=== PATIENT | female | born 1980 | race Caucasian/White ===

== ENCOUNTER 2016-12-01 18:05 | Emergency (ER) | payer OTHER ==
[2016-12-01 18:09] VITALS: BP 124/70; PULSE 87; RESP 16; TEMP 98.7
[2016-12-01] MEDS ORDERED: KETOROLAC 60 MG/2 ML VIAL IM STA (18:50)
--- NOTE | 2016-12-01 18:50 | ED ---
Neck Injury/Pain HPI - General Chief Complaint: Neck Pain/Injury Stated Complaint: neck pain Time Seen by Provider: 12/01/16 18:14 Mode of arrival: ambulatory Limitations: no limitations - History of Present Illness Initial Comments: 36-year-old female patient presents to emergency department today for complaints of neck pain. Patient states that she developed a migraine headache with neck pain 4-5 days ago. She states this was shortly after being at the carnival in riding the [employer] ride. Patient states that yesterday the pain in her head switched from the left side over to the right side and started radiating down into her neck. Patient states this morning she did go to the chiropractor, she had a massage and a neck adjustment. Patient states after the adjustment her headache did resolve, but she continued to have neck pain. Patient did have some nausea with her headache, but states this is typical with her migraine symptoms. Patient states she has been taking Flexeril, Tylenol No. 3, and Motrin for pain as well as applying heat and ice to the area without relief. Patient states the pain worsens with movement. Patient denies any fever, chills, current nausea or vomiting, shortness of breath, chest pain, back pain, dizziness, weakness, abdominal pain, urinary symptoms, or difficulties with bowel movements. She denies a loss of bowel or bladder control. Patient denies any radiation of the pain down either arm. Patient denies any numbness or tingling in her arms. - Related Data Home Medications Medication Instructions Recorded Confirmed Cetirizine HCl [Zyrtec] 10 mg PO BID 12/22/14 12/22/14 Levothyroxine Sodium [Tirosint] 50 mcg PO DAILY 12/22/14 12/22/14 Previous Rx's Medication Instructions Recorded Hydrocodone/Acetaminophen [Lefors 1 tab PO Q6HR PRN #20 tab 12/01/16 5-325] Orphenadrine [Norflex] 100 mg PO Q12H #20 tablet.er 12/01/16 Allergies Allergy/AdvReac Type Severity Reaction Status Date / Time Latex, Natural Rubber Allergy Unknown Verified 12/01/16 18:09 Review of Systems ROS Statement: Those systems with pertinent positive or pertinent negative responses have been documented in the HPI. ROS Other: All systems not noted in ROS Statement are negative. Past Medical History Past Medical History: Thyroid Disorder Additional Past Medical History / Comment(s): DERMAGRAPHISM History of Any Multi-Drug Resistant Organisms: None Reported Past Surgical History: Hysterectomy Past Psychological History: No Psychological Hx Reported Smoking Status: Never smoker Past Alcohol Use History: None Reported Past Drug Use History: None Reported General Exam Limitations: no limitations General appearance: alert, in no apparent distress Head exam: Present: atraumatic, normocephalic, normal inspection Eye exam: Present: normal appearance, PERRL, EOMI. Absent: scleral icterus, conjunctival injection, periorbital swelling ENT exam: Present: normal exam, normal oropharynx, mucous membranes moist Neck exam: Present: normal inspection, full ROM (Pain with lateral movement of the head, forward flexion, and extension of the neck.). Absent: tenderness, meningismus, lymphadenopathy Respiratory exam: Present: normal lung sounds bilaterally. Absent: respiratory distress, wheezes, rales, rhonchi, stridor Cardiovascular Exam: Present: regular rate, normal rhythm, normal heart sounds. Absent: systolic murmur, diastolic murmur, rubs, gallop, clicks GI/Abdominal exam: Present: soft, normal bowel sounds. Absent: distended, tenderness, guarding, rebound, rigid Back exam: Present: normal inspection Neurological exam: Present: alert, oriented X3, CN II-XII intact Psychiatric exam: Present: normal affect, normal mood Skin exam: Present: warm, dry, intact, normal color. Absent: rash Course Vital Signs 12/01/16 18:07 Temperature 98.7 F Pulse Rate 87 Respiratory 16 Rate Blood Pressure 124/70 O2 Sat by Pulse 100 Oximetry Medical Decision Making - Medical Decision Making 36 year-old female patient presented to emergency room in stable evaluation of neck pain. Patient did have some tenderness to the right lateral neck, was able to perform full range of motion but with some pain, patient's symptoms consistent with muscular injury. Patient was concerned did request x-ray. C- spine x-ray revealed no osseous abnormalities. Patient will be given a prescription for Norflex and Lefors for pain control. Patient injected. Her primary care physician in one to 2 days for recheck. Patient is asked to return for any new, worsening, or concerning symptoms. Disposition Clinical Impression: Neck pain, Muscle strain Disposition: HOME SELF-CARE Condition: Good Instructions: Cervical Strain (ED) Additional Instructions: Continue applying ice and heat. Utilize medications for pain control. Follow up with primary care doctor in 1-2 days for recheck. Return for any new, worsening, or concerning symptoms. Prescriptions: Hydrocodone/Acetaminophen [Lefors 5-325] 1 tab PO Q6HR PRN #20 tab PRN Reason: Pain Orphenadrine [Norflex] 100 mg PO Q12H #20 tablet.er Referrals: Eddi Michelle MD [Primary Care Provider] - 1-2 days Time of Disposition: 19:04
--- NOTE | 2016-12-01 18:58 | XR ---
EXAMINATION TYPE: XR cervical spine comp DATE OF EXAM: 12/01/2016 COMPARISON: NONE HISTORY: Neck pain TECHNIQUE: 6 views FINDINGS: Cervical vertebra have normal alignment. Posterior elements are intact. There are no cervic al ribs. Atlantoaxial facet joint is normal. Neural foramina are widely patent. IMPRESSION: Normal cervical spine exam.
== END 2016-12-01 19:08 | disposition home or self-care (01) ==
LOC: EC 18:05
DX: S16.1XXA Strain of muscle, fascia and tendon at neck level, initial encounter (principal); E07.9 Disorder of thyroid, unspecified; Z79.899 Other long term (current) drug therapy; Z91.040 Latex allergy status; X58.XXXA Exposure to other specified factors, initial encounter
CPT/HCPCS: 72050; 99283; 96372; J1885

== ENCOUNTER → 2017-12-15 | Outpatient (CLI) | payer OTHER ==
--- NOTE | 2017-12-16 07:27 | MM ---
Reason for exam: screening (asymptomatic). Baseline mammogram. History: Family history of breast cancer in paternal aunt at age 28. Taking progesterone beginning at age 37. Physical Findings: Nurse did not find any significant physical abnormalities on exam. [facility] Mammo w CAD MARKY Bilateral CC and MLO view(s) were taken. No prior studies available for comparison. The breast tissue is heterogeneously dense. This may lower the sensitivity of mammography. No discrete abnormality. These results were verbally communicated with the patient and result sheet given to the patient on 12/15/17. ASSESSMENT: Negative, BI-RAD 1 RECOMMENDATION: Routine screening mammogram of both breasts at age 39. Manage on a clinical basis.
== END | disposition home or self-care (01) ==
LOC: RADMAMWWP 14:21
PROVIDERS: ATTEND Family Medicine
DX: N64.52 Nipple discharge (principal)
CPT/HCPCS: 77066

== ENCOUNTER 2018-04-05 08:52 | Inpatient (IN) | payer OTHER ==
[2018-04-05] MEDS ORDERED: ONDANSETRON 4 MG/2 ML VIAL IVP STA (09:54)
[2018-04-05] MEDS ORDERED: KETOROLAC 30 MG/ML 1 ML VIAL IVP STA (09:54)
--- NOTE | 2018-04-05 09:54 | ED ---
Abdominal Pain HPI - General Chief Complaint: Abdominal Pain Stated Complaint: abdominal pain/vomiting Time Seen by Provider: 04/05/18 09:15 Source: patient, RN notes reviewed Mode of arrival: wheelchair Limitations: no limitations - History of Present Illness Initial Comments: This is a 29-year-old female history of irritable bowel syndrome who presents with complaints of nausea vomiting and dizziness that started yesterday along with left upper quadrant abdominal pain. Pain is 7-10/10 severity no diarrhea reported no constipation. She is had some chronic issues with abdominal discomfort she is here doctor for this and has lab scheduled. She has ultrasound scheduled the future also. He also seems to happen once nausea vomiting and dizziness she also feels chilled. She has had a vaginal hysterectomy no other abdominal surgeries. No cough or phlegm production no dysuria no hematuria though she states she felt like she may have been coming down with a UTI. She also was told to stop taking her medications about a week ago for upcoming tests MD Complaint: abdominal pain - Related Data Home Medications Medication Instructions Recorded Confirmed No Known Home Medications 04/05/18 04/05/18 Allergies Allergy/AdvReac Type Severity Reaction Status Date / Time Latex, Natural Rubber Allergy Unknown Verified 04/05/18 09:09 Review of Systems ROS Statement: Those systems with pertinent positive or pertinent negative responses have been documented in the HPI. ROS Other: All systems not noted in ROS Statement are negative. Past Medical History Past Medical History: Thyroid Disorder Additional Past Medical History / Comment(s): DERMAGRAPHISM ibs History of Any Multi-Drug Resistant Organisms: None Reported Past Surgical History: Hysterectomy Past Psychological History: No Psychological Hx Reported Smoking Status: Never smoker Past Alcohol Use History: None Reported Past Drug Use History: None Reported General Exam - General Exam Comments Initial Comments: This is a well-developed well-nourished awake alert oriented history female Limitations: no limitations General appearance: alert, anxious Head exam: Present: atraumatic, normocephalic, normal inspection Eye exam: Present: normal appearance, PERRL, EOMI. Absent: scleral icterus, conjunctival injection, periorbital swelling ENT exam: Present: mucous membranes dry Neck exam: Present: normal inspection. Absent: tenderness, meningismus, lymphadenopathy Respiratory exam: Present: normal lung sounds bilaterally. Absent: respiratory distress, wheezes, rales, rhonchi, stridor Cardiovascular Exam: Present: regular rate, normal rhythm, normal heart sounds. Absent: systolic murmur, diastolic murmur, rubs, gallop, clicks GI/Abdominal exam: Present: soft, tenderness (Epigastric left upper quadrant tenderness palpation no guarding rebound masses or bruits), normal bowel sounds. Absent: distended, guarding, rebound, rigid, hernia Rectal exam: Present: deferred Extremities exam: Present: normal inspection, full ROM, normal capillary refill. Absent: tenderness, pedal edema, joint swelling, calf tenderness Back exam: Present: normal inspection Neurological exam: Present: alert, oriented X3, CN II-XII intact Psychiatric exam: Present: normal affect, normal mood Skin exam: Present: warm, dry, intact, normal color. Absent: rash Course Vital Signs 04/05/18 04/05/18 08:55 13:14 Temperature 98.6 F Pulse Rate 66 74 Respiratory 20 16 Rate Blood Pressure 117/86 107/61 O2 Sat by Pulse 100 99 Oximetry - Reevaluation(s) Reevaluation #1: 04/05/18 13:42 Patient does still somewhat improved with respect to her bowel pain however she does have dizziness is not improved at all. Patient will be admitted for evaluation of intractable vertigo. Medical Decision Making - Medical Decision Making Patient persisted having profound dizziness with any type of movement she will be admitted for evaluation by neurology. Original intent was to discharge the patient but the vertigo is intractable this time. - Lab Data Result diagrams: 04/05/18 09:47 04/05/18 09:47 Lab Results 04/05/18 04/05/18 04/05/18 Range/Units 09:47 09:47 09:47 WBC 7.7 (3.8-10.6) k/uL RBC 4.94 (3.80-5.40) m/uL Hgb 14.5 (11.4-16.0) gm/dL Hct 42.3 (34.0-46.0) % MCV 85.6 (80.0-100.0) fL MCH 29.4 (25.0-35.0) pg MCHC 34.3 (31.0-37.0) g/dL RDW 12.7 (11.5-15.5) % Plt Count 257 (150-450) k/uL Neutrophils % 71 % Lymphocytes % 19 % Monocytes % 6 % Eosinophils % 2 % Basophils % 1 % Neutrophils # 5.4 (1.3-7.7) k/uL Lymphocytes # 1.5 (1.0-4.8) k/uL Monocytes # 0.4 (0-1.0) k/uL Eosinophils # 0.2 (0-0.7) k/uL Basophils # 0.1 (0-0.2) k/uL Sodium 142 (137-145) mmol/L Potassium 4.4 (3.5-5.1) mmol/L Chloride 107 (98-107) mmol/L Carbon Dioxide 27 (22-30) mmol/L Anion Gap 8 mmol/L BUN 11 (7-17) mg/dL Creatinine 0.62 (0.52-1.04) mg/dL Est GFR (CKD-EPI)AfAm >90 (>60 ml/min/1.73 sqM) Est GFR (CKD-EPI)NonAf >90 (>60 ml/min/1.73 sqM) Glucose 87 (74-99) mg/dL Calcium 9.6 (8.4-10.2) mg/dL Total Bilirubin 1.0 (0.2-1.3) mg/dL AST 19 (14-36) U/L ALT 21 (9-52) U/L Alkaline Phosphatase 40 (38-126) U/L Total Creatine Kinase 36 (30-135) U/L CK-MB (CK-2) <0.2 (0.0-2.4) ng/mL CK-MB (CK-2) Rel Index Troponin I <0.012 (0.000-0.034) ng/mL Total Protein 7.4 (6.3-8.2) g/dL Albumin 4.3 (3.5-5.0) g/dL Amylase 88 (30-110) U/L Lipase 42 (23-300) U/L TSH 2.600 (0.465-4.680) mIU/L Urine Color Urine Appearance (Clear) Urine pH (5.0-8.0) Ur Specific [place] (1.001-1.035) Urine Protein (Negative) Urine Glucose (UA) (Negative) Urine Ketones (Negative) Urine Blood (Negative) Urine Nitrite (Negative) Urine Bilirubin (Negative) Urine Urobilinogen (<2.0) mg/dL Ur Leukocyte Esterase (Negative) Urine RBC (0-5) /hpf Urine WBC (0-5) /hpf Ur Squamous Epith Cells (0-4) /hpf Urine Bacteria (None) /hpf Hyaline Casts (0-2) /lpf Urine Mucus (None) /hpf Urine HCG, Qual (Not Detectd) 04/05/18 04/05/18 Range/Units 12:21 12:21 WBC (3.8-10.6) k/uL RBC (3.80-5.40) m/uL Hgb (11.4-16.0) gm/dL Hct (34.0-46.0) % MCV (80.0-100.0) fL MCH (25.0-35.0) pg MCHC (31.0-37.0) g/dL RDW (11.5-15.5) % Plt Count (150-450) k/uL Neutrophils % % Lymphocytes % % Monocytes % % Eosinophils % % Basophils % % Neutrophils # (1.3-7.7) k/uL Lymphocytes # (1.0-4.8) k/uL Monocytes # (0-1.0) k/uL Eosinophils # (0-0.7) k/uL Basophils # (0-0.2) k/uL Sodium (137-145) mmol/L Potassium (3.5-5.1) mmol/L Chloride (98-107) mmol/L Carbon Dioxide (22-30) mmol/L Anion Gap mmol/L BUN (7-17) mg/dL Creatinine (0.52-1.04) mg/dL Est GFR (CKD-EPI)AfAm (>60 ml/min/1.73 sqM) Est GFR (CKD-EPI)NonAf (>60 ml/min/1.73 sqM) Glucose (74-99) mg/dL Calcium (8.4-10.2) mg/dL Total Bilirubin (0.2-1.3) mg/dL AST (14-36) U/L ALT (9-52) U/L Alkaline Phosphatase (38-126) U/L Total Creatine Kinase (30-135) U/L CK-MB (CK-2) (0.0-2.4) ng/mL CK-MB (CK-2) Rel Index Troponin I (0.000-0.034) ng/mL Total Protein (6.3-8.2) g/dL Albumin (3.5-5.0) g/dL Amylase (30-110) U/L Lipase (23-300) U/L TSH (0.465-4.680) mIU/L Urine Color Yellow Urine Appearance Cloudy H (Clear) Urine pH 7.0 (5.0-8.0) Ur Specific [place] 1.018 (1.001-1.035) Urine Protein Trace H (Negative) Urine Glucose (UA) Negative (Negative) Urine Ketones 3+ H (Negative) Urine Blood Negative (Negative) Urine Nitrite Negative (Negative) Urine Bilirubin Negative (Negative) Urine Urobilinogen <2.0 (<2.0) mg/dL Ur Leukocyte Esterase Negative (Negative) Urine RBC 4 (0-5) /hpf Urine WBC 2 (0-5) /hpf Ur Squamous Epith Cells 3 (0-4) /hpf Urine Bacteria Rare H (None) /hpf Hyaline Casts 1 (0-2) /lpf Urine Mucus Many H (None) /hpf Urine HCG, Qual Not Detected (Not Detectd) - Radiology Data Radiology results: report reviewed (Review the imaging shows no acute findings. There is evidence a left renal cyst cyst), image reviewed Disposition Clinical Impression: Vertigo, Abdominal pain Disposition: ADMITTED IP TO THIS [facility] Condition: Stable Referrals: Anika Lemos MD [Primary Care Provider] - 1-2 days
[2018-04-05 09:59] LABS: Basophils # (A) 0.1 k/uL (0-0.2); Basophils % (A) 1 %; Eosinophils # (A) 0.2 k/uL (0-0.7); Eosinophils % (A) 2 %; HCT 42.3 % (34.0-46.0); HGB 14.5 gm/dL (11.4-16.0); Lymphocytes # (A) 1.5 k/uL (1.0-4.8); Lymphocytes % (A) 19 %; MCH 29.4 pg (25.0-35.0); MCHC 34.3 g/dL (31.0-37.0); MCV 85.6 fL (80.0-100.0); Mean Platelet Volume 7.3; Monocytes # (A) 0.4 k/uL (0-1.0); Monocytes % (A) 6 %; Neutrophils # (A) 5.4 k/uL (1.3-7.7); Neutrophils % (A) 71 %; Platelet Count 257 k/uL (150-450); RBC 4.94 m/uL (3.80-5.40); RDW 12.7 % (11.5-15.5); WBC 7.7 k/uL (3.8-10.6)
[2018-04-05 10:14] LABS: ALT 21 U/L (9-52); AST 19 U/L (14-36); Albumin 4.3 g/dL (3.5-5.0); Alkaline Phosphatase 40 U/L (38-126); Amylase 88 U/L (30-110); Anion Gap 8 mmol/L; Blood Urea Nitrogen 11 mg/dL (7-17); Calcium 9.6 mg/dL (8.4-10.2); Carbon Dioxide 27 mmol/L (22-30); Chloride 107 mmol/L (98-107); Glucose 87 mg/dL (74-99); Lipase 42 U/L (23-300); Potassium 4.4 mmol/L (3.5-5.1); Sodium 142 mmol/L (137-145); Total Protein 7.4 g/dL (6.3-8.2)
--- NOTE | 2018-04-05 10:15 | XR ---
EXAMINATION TYPE: XR KUB DATE OF EXAM: 04/05/2018 COMPARISON: NONE HISTORY: Pain TECHNIQUE: Single supine KUB image of the abdomen is obtained FINDINGS: Small bowel demonstrates no evidence for dilatation or air fluid levels. Gas and fecal material is seen in non-distended colon. No convincing evidence for pneumoperitoneum. No unusual calcifications. The lung bases are clear. The osseous structures are intact. IMPRESSION: 1. Overall nonobstructive bowel gas pattern.
[2018-04-05 10:23] LABS: Creatine Kinase 36 U/L (30-135)
[2018-04-05] MEDS ORDERED: MECLIZINE 12.5 MG TAB PO STA ×2 (10:33→12:34)
[2018-04-05 10:35] LABS: Creatine Kinase MB <0.2 ng/mL (0.0-2.4); Troponin I <0.012 ng/mL (0.000-0.034)
[2018-04-05] MEDS ORDERED: SODIUM CHLORIDE 0.9% 500 ML 500 ML IV STA (12:34)
--- NOTE | 2018-04-05 12:59 | CT ---
EXAMINATION TYPE: CT abdomen pelvis wo con DATE OF EXAM: 04/05/2018 COMPARISON: None HISTORY: Abdominal pain, vomiting and dizziness CT DLP: 350 mGycm Examination of the solid and hollow viscera is limited given the lack of contrast. FINDINGS: LUNG BASES: No evidence for nodule. No evidence for infiltrate. LIVER/GB: The gallbladder is unremarkable. No space-occupying hepatic lesion. PANCREAS: No pancreatic mass identified. No inflammatory process seen. SPLEEN: No evidence for splenomegaly. No intrasplenic lesions seen. ADRENALS: No adrenal nodules identified. No evidence for thickening. KIDNEYS: Bilateral renal cystic changes noted. Large cyst upper pole left kidney measures 3.2 cm in g reatest dimension. No nephrolithiasis. No hydronephrosis. BOWEL: Appendix has a normal appearance. No evidence of bowel obstruction. No inflammatory process. Lymph nodes: No evidence for adenopathy greater than 1 cm. Abdominal aorta: Atheromatous changes seen. No evidence for aneurysm. Genital organs: No significant abnormality. Other: No significant abnormality. IMPRESSION: 1. No acute intra-abdominal process appreciated. 2. Large left renal cyst as well as smaller bilateral renal cysts noted.
[2018-04-05 13:03] LABS: Appearance,Urine Cloudy (Clear); Bacteria,Urine Rare /hpf; Bilirubin,Urine Negative (Negative); Blood,Urine Negative (Negative); Color,Urine Yellow; Glucose,Urine (UA) Negative (Negative); Hyaline Casts,Urine 1 /lpf (0-2); Ketones,Urine 3+ (Negative); Leukocyte Esterase,Urine Negative (Negative); Mucus,Urine Many /hpf; Nitrite,Urine Negative (Negative); Protein,Urine Trace (Negative); RBC,Urine 4 /hpf (0-5); Specific Gravity,Urine 1.018 (1.001-1.035); Squamous Epithelial Cell,Urine 3 /hpf (0-4); Urobilinogen,Urine <2.0 mg/dL (<2.0); WBC,Urine 2 /hpf (0-5)
[2018-04-05] MEDS ORDERED: NALOXONE 0.4 MG/ML 1 ML VIAL IV PRN (13:47)
[2018-04-05] MEDS ORDERED: ACETAMINOPHEN TAB 325 MG TAB PO PRN (13:47)
[2018-04-05] MEDS ORDERED: methylPREDNISolone SOD SUCCI 125 MG/2 ML VIAL IV STA (13:55)
[2018-04-05] MEDS ORDERED: DIAZEPAM 5 MG TAB PO STA (13:55)
[2018-04-05] MEDS: ONDANSETRON 4 MG/2 ML VIAL IVP PRN (18:02)
[2018-04-05] MEDS ORDERED: ALPRAZolam 0.25 MG TAB PO PRN (19:37)
[2018-04-05] MEDS ORDERED: TEMAZEPAM 15 MG CAP PO PRN (19:37)
[2018-04-05] MEDS ORDERED: HYDROcodone/APAP 5-325MG 1 EACH TAB PO PRN (19:37)
--- NOTE | 2018-04-05 20:47 | CT ---
EXAMINATION TYPE: CT brain wo con DATE OF EXAM: 04/05/2018 COMPARISON: 06/17/2013 HISTORY: Dizziness. CT DLP: 785.7 mGycm. Automated Exposure Control for Dose Reduction was Utilized. TECHNIQUE: CT scan of the head is performed without contrast. FINDINGS: Ventricles of normal size. There is no mass effect nor midline shift. There is no sign of i ntracranial hemorrhage. Calvarium is intact. IMPRESSION: Negative CT scan of the brain. No change.
--- NOTE | 2018-04-05 20:56 | HP ---
HISTORY AND PHYSICAL CHIEF COMPLAINTS: Abdominal pain as well as dizziness. HISTORY OF PRESENT ILLNESS: This 37-year-old woman with a past medical history of seizure disorder, history of hypothyroidism, history of dermatographism, history of hysterectomy, uterine ablation, being followed by Dr. Lemos in the outpatient setting, was complaining of abdominal pain. The patient also had dizziness today. The pain was mostly situated in the left upper quadrant and was radiating to the back, according to her. The patient also had irritable bowel syndrome previously and the patient also had episodes and diarrhea and nausea. The patient also felt dizzy, and dizziness increased with change in the position of the neck, and the patient came to [facility] and was admitted for further evaluation and treatment. CT scan of the abdomen and pelvis did not show any abnormality. Neurology evaluation is in progress. There is no history of any fever, rigor or chills. No history of headache, loss of consciousness, seizures. PAST MEDICAL HISTORY: 1. Seizure disorder. 2. Skin disorder. 3. Hypothyroidism. 4. Dermatographism. 5. Hysterectomy. 6. Uterine ablation. MEDICATIONS PRIOR TO ADMISSION: None. ALLERGIES: LATEX. FAMILY HISTORY: Diabetes mellitus, hypertension, hyperlipidemia, hypomagnesemia in the family. SOCIAL HISTORY: No history of smoking. No history of alcohol intake. Patient works in a chiropractic office. REVIEW OF SYSTEMS: ENT: As mentioned earlier. CARDIOVASCULAR SYSTEM: No angina, palpitations. RESPIRATORY SYSTEM: As mentioned earlier. GI: As mentioned earlier. : No dysuria or retention. NERVOUS SYSTEM: No numbness, weakness. ALLERGY/IMMUNOLOGY: No asthma, hayfever. MUSCULOSKELETAL: As mentioned earlier. HEMATOLOGY/ONCOLOGY: No history of anemia. ENDOCRINE: No history of diabetes, hypothyroidism. CONSTITUTIONAL: As mentioned earlier. DERMATOLOGY: Negative. RHEUMATOLOGY: Negative. PSYCHIATRY: As mentioned earlier. PHYSICAL EXAMINATION: Patient is alert, oriented x3. Pulse 67, blood pressure 122/66, respiration 16, temperature 99 degrees, pulse ox 100% on room air. HEENT: Conjunctivae normal. Oral mucosa moist. NECK: No jugular venous distention. No carotid bruit. No lymph node enlargement. CARDIOVASCULAR SYSTEM: S1, S2 muffled. RESPIRATORY SYSTEM: Breath sounds diminished at the bases. No rhonchi. No crackles. ABDOMEN: Soft. Mild diffuse discomfort to palpation. No guarding. No rigidity. No mass palpable. No hepatosplenomegaly. No ascites. LEGS: No edema. No swelling. NERVOUS SYSTEM: Higher functions as mentioned earlier. Moves all 4 limbs. No focal motor or sensory deficit. No nystagmus. No diplopia. SKIN: No ulcer, rash or bleeding. JOINTS: No active deforming arthropathy. LABS: CBC, BMP within normal limits. TSH is normal. FSH is normal. UA noted. ASSESSMENT: 1. Abdominal pain and nausea; possible irritable bowel syndrome, acute exacerbation. 2. Possible acute gastritis. 3. Vertigo; possible benign pressure vertigo. 4. Large left renal cyst on the CT scan. 5. History of irritable bowel syndrome. 6. History of seizure disorder. 7. History of hypothyroidism. 8. History of dermatographism. 9. History of hysterectomy. RECOMMENDATIONS AND DISCUSSION: In this 37-year-old woman who presented with multiple complex medical issues, we will monitor the patient closely, continue the current management, continue with symptomatic treatment. Otherwise at this time I would recommend symptomatic treatment. I would also recommend a CT scan of the brain to complete the workup. Neurology evaluation. Guarded prognosis because of multiple complex medical issues. Further recommendations to follow. MMODL / IJN: [id number] /
[2018-04-05] MEDS: HEPARIN SODIUM,PORCINE 5,000 UNIT/ML 1 ML VIAL SQ SCH (21:13)
[2018-04-05] MEDS: MECLIZINE 25 MG TAB PO SCH (21:13)
[2018-04-05] MEDS: SODIUM CHLORIDE 0.9% 1,000 ML IV SCH (22:10)
--- NOTE | 2018-04-05 22:42 | P.CNNES ---
History of Present Illness Consult date: 04/05/18 History of Present Illness: Patient 37-year-old right-handed white female who states that Wednesday night when she got up to use the restroom she developed sudden onset dizziness and vertigo. She was running into dawson. Discontinued all day and she did go to work. She works at a chiropractor's office and she had an adjustment thinking it might help with this did not help and it did not change her situation. The dizziness continued all day Wednesday. Today when she was in the shower she felt very dizzy and thought she might fall. She held to the handrails and called her . She was brought to the hospital with symptoms of vertigo. She also came because of chronic abdominal pain. The patient reports that she has had abdominal pain of left upper quadrant for over a year and she was diagnosed with IBS. The patient states that this vertigo which began a few days ago is associated with nausea vomiting and she has some left ear tinnitus for the past 1 month next Patient also reports chronic migraines. Her migraines occur 2-3 times a week and also on weekends. She was on Topamax in the past but this caused her some side effects of numbness in the feet and so she stopped. Migraines consist of preceding visual loss in the left eye followed by a headache. She states sometimes of visual blurring and loss will last throughout her headache. She normally gets the adjustment done for her headache and prefers not to take any medications. She has tried tryptophans in the past which didn't help. It aches became complicated in 2016. Prior to 2016 her migraines were not associated with visual loss or facial numbness. Now her migraines Are associated with left eye visual loss and left facial numbness since 2016. Review of Systems Constitutional: Denies chills, Denies fever Ears, nose, mouth and throat: Denies headache, Denies sore throat Cardiovascular: Denies chest pain, Denies shortness of breath Respiratory: Denies cough Gastrointestinal: Denies abdominal pain, Denies diarrhea, Denies nausea, Denies vomiting Musculoskeletal: Denies myalgias Neurological: Denies numbness, Denies weakness Psychiatric: Denies anxiety, Denies depression Past Medical History Past Medical History: Seizure Disorder, Skin Disorder, Thyroid Disorder Additional Past Medical History / Comment(s): DERMAGRAPHISM ibs, chronic abdominal pain-to have US on 04/13/18, past hypothyroid but no longer issue, one seizure as an and was comatose for 5 days, migraines, hypoglycemia. History of Any Multi-Drug Resistant Organisms: None Reported Past Surgical History: Hysterectomy, Uterine Ablation Additional Past Surgical History / Comment(s): D&C x2m hysteroscopy with uterine ablation Past Anesthesia/Blood Transfusion Reactions: No Reported Reaction Past Psychological History: No Psychological Hx Reported Additional Psychological History / Comment(s): Pt resides with her spouse and 2 out of their 3 children. Oldest child no longer lives at home. Pt works for [employer] Smoking Status: Never smoker Past Alcohol Use History: None Reported Past Drug Use History: None Reported - Past Family History Mother Family Medical History: Diabetes Mellitus, Hyperlipidemia, Hypertension Additional Family Medical History / Comment(s): Hypomagnesemia. Father Family Medical History: Chest Pain / Angina, Coronary Artery Disease (CAD), Hypertension, Myocardial Infarction (IA) Additional Family Medical History / Comment(s): Father had his first IA in his mid 50s. Medications and Allergies Home Medications Medication Instructions Recorded Confirmed Type No Known Home Medications 04/05/18 04/05/18 History Allergies Allergy/AdvReac Type Severity Reaction Status Date / Time Latex, Natural Rubber Allergy Unknown Verified 04/05/18 09:09 Physical Examination - Vital Signs Vital Signs: Vital Signs Temp Pulse Pulse Pulse Pulse Pulse Resp 04/05/18 21:43 87 89 76 04/05/18 21:05 98.4 F 78 16 04/05/18 15:37 98.2 F 75 16 04/05/18 14:16 99 F 67 16 04/05/18 13:14 74 16 04/05/18 08:55 98.6 F 66 20 BP BP BP BP BP Pulse Ox 04/05/18 21:43 111/61 109/65 102/58 04/05/18 21:05 99/58 96 04/05/18 15:37 100/58 97 04/05/18 14:16 122/66 100 04/05/18 13:14 107/61 99 04/05/18 08:55 117/86 100 Intake and Output 04/05/18 04/05/18 04/05/18 06:59 14:59 22:59 Other: Voiding Method Toilet Weight 58.06 kg - Constitutional General appearance: thin - EENT EENT: PERRL, hearing intact - Respiratory Respiratory: lungs clear - Cardiovascular Cardiovascular: regular rate, normal S1, normal S2 - Neurologic Neurologic examination: Cranial nerve examination: Nerves II through XII grossly intact Motor examination: 5 out of 5 throughout Sensory examination: Intact to light touch X Coordination: Finger to nose [id number] intact Deep tendon reflexes: 1+ and symmetric next Gait: Not tested Results - Laboratory Findings CBC and BMP: 04/05/18 09:47 04/05/18 09:47 Abnormal Lab Findings: Abnormal Labs 04/05/18 12:21 Urine Appearance Cloudy H Urine Protein Trace H Urine Ketones 3+ H Urine Bacteria Rare H Urine Mucus Many H Assessment and Plan (1) Vertigo Current Visit: Yes Status: Acute SNOMED Code(s): 818211180 (2) Abdominal pain Current Visit: Yes Status: Acute SNOMED Code(s): 58779207 (3) History of atypical migraine Current Visit: Yes Status: Acute SNOMED Code(s): 079737511 Plan: The patient is a 37-year-old woman who presents with vertigo. She also presents with chronic abdominal pain and history of migraines. Had a CT of the brain which was negative. Recommend MRI of the IAC and MRA brain Her vertigo is likely peripheral vestibular disturbance. Her migraines are chronic and recommend prophylactic treatment with extended release Topamax 25 mg a day. The patient will be given meclizine 25 mg 3 times a day as needed
[2018-04-05] MEDS: KETOROLAC 30 MG/ML 1 ML VIAL IVP PRN (23:00)
[2018-04-06] MEDS: DIAZEPAM 5 MG TAB PO PRN ×3 (01:21→21:01)
[2018-04-06] MEDS: ONDANSETRON 4 MG/2 ML VIAL IVP PRN ×2 (01:22→10:01)
[2018-04-06] MEDS: PANTOPRAZOLE 40 MG TABLET PO SCH (07:25)
[2018-04-06] MEDS: TOPIRAMATE 25 MG TAB PO SCH (07:25)
[2018-04-06] MEDS: HEPARIN SODIUM,PORCINE 5,000 UNIT/ML 1 ML VIAL SQ SCH ×2 (07:25→21:01)
[2018-04-06] MEDS: KETOROLAC 30 MG/ML 1 ML VIAL IVP PRN (07:26)
[2018-04-06] MEDS: MECLIZINE 25 MG TAB PO SCH ×3 (07:26→21:01)
[2018-04-06] MEDS: SODIUM CHLORIDE 0.9% 1,000 ML IV SCH ×2 (07:26→21:03)
[2018-04-06 10:23] VITALS: BMI 22.6
--- NOTE | 2018-04-06 15:46 | MR ---
EXAMINATION TYPE: MR brain and iac wo con DATE OF EXAM: 04/06/2018 COMPARISON: NONE HISTORY: 37-year-old female Vertigo/headache TECHNIQUE: Multiplanar, multisequence images of the brain and brainstem were acquired without IV con trast. Diffusion weighted imaging was performed. Additional coned-down sequences through the interna l auditory canals and posterior cranial fossa were obtained. FINDINGS: Diffusion weighted images demonstrate no evidence of an acute ischemic lesion in the brain. T2/FLAIR weighted sequences show no white matter signal abnormality. Midline structures demonstrate normal morphology. The craniocervical junction is normal. Brain volume is age appropriate. The ventricles are of normal caliber. There is no evidence of an acute intracranial hemorrhage, infarct, mass, mass-effect or an extra-axia l fluid collection. There is no cerebellopontine angle mass. The internal auditory canals are symmetric. Brainstem and skull base abnormalities are not seen. No evident abnormality of the labyrinths or inner ear structures by noncontrast study. Trace mucosal thickening within the right maxillary sinus. Patient's gaze appears divergent. 1 cm T1 and T2 dark nodule along the scalp of the right vertex most likely a sebaceous cyst. Correlat e with physical exam findings. IMPRESSION: 1. No intracranial abnormality seen. 2. Normal acoustic MRI. 3. Divergent gaze suggests underlying strabismus. Clinically correlate. 4. Trace mucosal thickening right maxillary sinus. 5. There is a 1 cm cystic nodule along the scalp of the right vertex likely representing a sebaceous cyst. Correlate with physical exam findings.
--- NOTE | 2018-04-06 15:49 | MR ---
EXAMINATION TYPE: MR angio head wo con DATE OF EXAM: 04/06/2018 COMPARISON: Correlation MRI same day HISTORY: 37-year-old female with Vertigo/headache TECHNIQUE: High-resolution 3-D time of flight images focusing on the [place] of [place] were performed without contrast. Rotational 3-D reconstructions generated on a dedicated independent workstation. FINDINGS: The A1 segment left anterior cerebral artery is slightly smaller in caliber as compared to the contra lateral side, likely normal congenital variation. Otherwise, the anterior and posterior circulations are patent without significant stenosis or arteria l occlusion. No aneurysmal change is seen. IMPRESSION: Normal MRA [place].
[2018-04-07] MEDS: SODIUM CHLORIDE 0.9% 1,000 ML IV SCH ×3 (06:02→23:41)
[2018-04-07] MEDS: DIAZEPAM 5 MG TAB PO PRN ×2 (08:01→16:03)
[2018-04-07] MEDS: HEPARIN SODIUM,PORCINE 5,000 UNIT/ML 1 ML VIAL SQ SCH ×2 (08:01→21:37)
[2018-04-07] MEDS: TOPIRAMATE 25 MG TAB PO SCH (08:01)
[2018-04-07] MEDS: ONDANSETRON 4 MG/2 ML VIAL IVP PRN ×3 (08:01→23:38)
[2018-04-07] MEDS: PANTOPRAZOLE 40 MG TABLET PO SCH (08:01)
[2018-04-07] MEDS: KETOROLAC 30 MG/ML 1 ML VIAL IVP PRN ×3 (08:02→22:40)
[2018-04-07] MEDS: MECLIZINE 25 MG TAB PO SCH ×3 (09:52→21:37)
--- NOTE | 2018-04-07 10:49 | P.PN ---
Subjective this is pleasant 37 yo female who presents with vertigo , she is been evaluated by neurologist who recommended MRI and MRA of the brain ,which came back negative to suggest pain symptoms and signs also she has migrain headacke, topamax was added for her . she has chronic abd pain that has been getting worse over several months, its and the left upper abdomen radiating over to the back. Sometimes feels sharp sometimes feels queasy and sometimes is nonspecific as per patient. About 5-6/10 in severity. Associated with some nausea and vomiting and patient get worse with food. However abdominal exam is completely benign with no tenderness. GI consult has been called. Patient also complained from dysuria. Urinalysis is been requested CONSTITUTIONAL: No fever, no malaise, no fatigue. HEENT: No recent visual problems or hearing problems. Denied any sore throat. CARDIOVASCULAR: No orthopnea, PND, no palpitations, no syncope. PULMONARY: No shortness of breath, no cough, no hemoptysis. GASTROINTESTINAL: . Normoactive bowel sounds. NEUROLOGICAL: No headaches, no weakness, no numbness. HEMATOLOGICAL: Denies any bleeding or petechiae. GENITOURINARY: Denies frequency, or urgency. MUSCULOSKELETAL/RHEUMATOLOGICAL: Denies any joint pain, swelling, or any muscle pain. ENDOCRINE: Denies any polyuria or polydipsia. Objective - Vital Signs Vital signs: Vital Signs Temp 98.5 F 04/07/18 05:00 Pulse 68 04/07/18 05:00 Resp 16 04/07/18 05:00 BP 105/64 04/07/18 05:00 Pulse Ox 98 04/07/18 05:00 Intake & Output 04/06/18 04/07/18 04/07/18 18:59 06:59 18:59 Intake Total 800 1400 Balance 800 1400 Weight 58.06 kg Intake: Intake, IV Titration 800 900 Amount Sodium Chloride 0.9% 1, 800 900 000 ml @ 100 mls/hr IV . Q10H [facility] Rx#:[id number] Oral 500 Other: Voiding Method Toilet Toilet Toilet # Voids 1 - Exam GENERAL: The patient is alert and oriented x3, not in any acute distress. Well developed, well nourished. HEENT: Pupils are round and equally reacting to light. EOMI. No scleral icterus. No conjunctival pallor. Normocephalic, atraumatic. No pharyngeal erythema. No thyromegaly. CARDIOVASCULAR: S1 and S2 present. No murmurs, rubs, or gallops. PULMONARY: Chest is clear to auscultation, no wheezing or crackles. ABDOMEN: Soft, nontender, nondistended, normoactive bowel sounds. No palpable organomegaly. MUSCULOSKELETAL: No joint swelling or deformity. EXTREMITIES: No cyanosis, clubbing, or pedal edema. NEUROLOGICAL: Gross neurological examination did not reveal any focal deficits. SKIN: No rashes. - Labs CBC & Chem 7: 04/05/18 09:47 04/05/18 09:47 Assessment and Plan Assessment: vertigo chronic migraine chronic abdominal pain Dysuria Plan: this is a pleasant 37 yo f who peresnts with s/s of vertigo. pt is been evaluated by neurologist . her MRI/MRA was non reveling for a cause for her symptoms. Call GI consult for her abdominal pain. continue with the same treatment , continue with symptomatic treatment , resume home medication , monitor lytes and vitals including glucose , c/w iv fluids, cardiology consult is appreciated. infectious disease consult is appreciated . c /w same antibioitc . GI and DVT prophylaxis , further recommendation based upon pt clinical course and progress DVT prophylaxis subcutaneous heparin GI prophylaxis Pepcid PT/OT: pending Prognosis is guarded
[2018-04-07 11:18] LABS: Appearance,Urine Clear (Clear); Bilirubin,Urine Negative (Negative); Blood,Urine Negative (Negative); Color,Urine Light Yellow; Glucose,Urine (UA) Negative (Negative); Ketones,Urine Negative (Negative); Leukocyte Esterase,Urine Negative (Negative); Nitrite,Urine Negative (Negative); Protein,Urine Negative (Negative); Specific Gravity,Urine 1.006 (1.001-1.035); Urobilinogen,Urine <2.0 mg/dL (<2.0)
--- NOTE | 2018-04-07 11:46 | P.CONS ---
History of Present Illness - Reason for Consult Consult date: 04/07/18 Abdominal pain Requesting physician: Yonis Lopez - Chief Complaint Vertigo chronic left-sided abdominal pain - History of Present Illness 37-year-old female with a history of IBS-D not on maintenance therapy, migraines , chronic abdominal pain, demographism, dense with vertigo and acute on chronic abdominal pain left upper quadrant localized without fever chills hematemesis hematochezia melena. Patient describes a change in caliber of her bowel movements more pencillike. Normally has a bowel movement daily to when she has an IV is. It could be several bowel movements daily. CT Reported normal appendix. No evidence of bowel obstruction or inflammatory process. Gallbladder pancreas unremarkable. No splenomegaly. She has a history of colonoscopy about 10 years ago her memory unremarkable. She has a family history of colon cancer uncle and grandmother. She has been evaluated by neurology head MRI brain MRI completed; no acute abnormality. Abdominal pain worsens with food. White count 7.7. Hemoglobin 14.5. LFTs amylase lipase within normal limits. Review of Systems Constitutional: Denies fever, chills, sweats, weight gain, or loss. HEENT: History of migraines, denies blurred vision or loss, earaches, drainage, tinnitus, oral mucosal lesions, dysphagia, or odynophagia. CARDIAC: Negative for chest pain, arrhythmias, or palpitation. RESPIRATORY: Negative for shortness of breath, hemoptysis, cough, or sputum production. GI: See HPI for pertinent findings. : Negative for hematuria, urgency, frequency, polyuria, or dysuria. GYNc: Denies possibility of . Negative vaginal discharge. MUSCULOSKELETAL: Negative for muscle aches, swelling, arthritis, and arthralgias. NEUROLOGIC: Negative for stroke or TIA. ENDOCRINE: Negative for thyroid problems. SKIN: Negative for rash or itching. PSYCHIATRIC: Negative history for depression and anxiety Past Medical History Past Medical History: Seizure Disorder, Skin Disorder, Thyroid Disorder Additional Past Medical History / Comment(s): DERMAGRAPHISM ibs, chronic abdominal pain-to have US on 04/13/18, past hypothyroid but no longer issue, one seizure as an and was comatose for 5 days, migraines, hypoglycemia. History of Any Multi-Drug Resistant Organisms: None Reported Past Surgical History: Hysterectomy, Uterine Ablation Additional Past Surgical History / Comment(s): D&C x2m hysteroscopy with uterine ablation Past Anesthesia/Blood Transfusion Reactions: No Reported Reaction Past Psychological History: No Psychological Hx Reported Additional Psychological History / Comment(s): Pt resides with her spouse and 2 out of their 3 children. Oldest child no longer lives at home. Pt works for [employer]. Smoking Status: Never smoker Past Alcohol Use History: None Reported Past Drug Use History: None Reported - Past Family History Mother Family Medical History: Diabetes Mellitus, Hyperlipidemia, Hypertension Additional Family Medical History / Comment(s): Hypomagnesemia. Father Family Medical History: Chest Pain / Angina, Coronary Artery Disease (CAD), Hypertension, Myocardial Infarction (SD) Additional Family Medical History / Comment(s): Father had his first SD in his mid 50s. Medications and Allergies Home Medications Medication Instructions Recorded Confirmed Type No Known Home Medications 04/05/18 04/05/18 History Allergies Allergy/AdvReac Type Severity Reaction Status Date / Time Latex, Natural Rubber Allergy Unknown Verified 04/05/18 09:09 Physical Exam Vitals: Vital Signs Temp Pulse Pulse Resp BP BP Pulse Ox 04/07/18 05:00 98.5 F 68 16 105/64 98 04/06/18 21:00 98.1 F 80 16 115/73 97 04/06/18 13:30 98.1 F 81 16 100/60 96 Intake and Output 04/06/18 04/07/18 04/07/18 22:59 06:59 14:59 Intake Total 1400 Balance 1400 Intake: Intake, IV Titration 900 Amount Sodium Chloride 0.9% 1, 900 000 ml @ 100 mls/hr IV . Q10H [facility] Rx#:[id number] Oral 500 Other: Voiding Method Toilet Toilet # Voids 1 1 General appearance: The patient is alert, oriented, in no acute distress. HET: Head is normocephalic and atraumatic. Pupils are equal and reactive. Oropharynx is clear without lesions. Neck: Supple without lymphadenopathy. Trachea midline. Heart: S1 S2. Regular rate and rhythm. Lungs: No crackles or wheezes are heard. Abdomen: Soft, mild tenderness left upper quadrant extending to the left retroperitoneal region, nondistended with bowel sounds. No peritoneal signs. No palpable organomegaly or masses. Extremities: Normal skin color and turgor. No cyanosis, rash, ulceration, clubbing, or edema. Radial and pedal pulses are 2/4 bilaterally. Neurological: No focal deficits. Strength and sensation are grossly intact. Results CBC & Chem 7: 04/05/18 09:47 04/05/18 09:47 CT scan - abdomen: report reviewed (Dr. Rodriguez) Assessment and Plan (1) Abdominal pain Narrative/Plan: 37-year-old female admitted with acute vertigo acute on chronic left upper quadrant abdominal pain with a history of IBS-D CT imaging unremarkable for any acute bowel pathology no evidence of spleen or pancreas abnormalities. Etiology of pain is unclear possible exacerbation of IBS. Current Visit: Yes Status: Acute Code(s): R10.9 - UNSPECIFIED ABDOMINAL PAIN SNOMED Code(s): 15284448 (2) History of IBS Current Visit: Yes Status: Acute Code(s): Z87.19 - PERSONAL HISTORY OF OTHER DISEASES OF THE DIGESTIVE SYSTEM SNOMED Code(s): 56846167776459 (3) Vertigo Current Visit: Yes Status: Acute Code(s): R42 - DIZZINESS AND GIDDINESS SNOMED Code(s): 193168100 Plan: 1. EGD/Colonoscopy. The station attendant has discussed the risks, benefits and alternative therapies for the above-mentioned procedure and for both sedation/analgesia as well as necessary blood product administration, if indicated, as they pertain to this patient. The patient has indicated understanding and acceptance of the risks and procedures discussed. Thank you for this kind referral and the opportunity to participate in the care of your patient. This consultation was discussed with Dr. Rodriguez. The impression and plan of care have been directed as dictated.
[2018-04-07] MEDS ORDERED: BISACODYL 5 MG TABLET.DR PO STA (13:01)
[2018-04-07] MEDS ORDERED: PEG 3350-NA SULF,BICARB,CL/KCL 4,000 ML BOTTLE PO ONE (15:00)
[2018-04-07] MEDS: LACTATED RINGERS 1,000 ML IV SCH (21:22)
[2018-04-07 23:57] LABS: Basophils # (A) 0.1 k/uL (0-0.2); Basophils % (A) 1 %; Eosinophils # (A) 0.2 k/uL (0-0.7); Eosinophils % (A) 3 %; HGB 13.3 gm/dL (11.4-16.0); Lymphocytes # (A) 2.3 k/uL (1.0-4.8); Lymphocytes % (A) 34 %; MCH 27.6 pg (25.0-35.0); Mean Platelet Volume 6.5; Monocytes # (A) 0.4 k/uL (0-1.0); Monocytes % (A) 5 %; Neutrophils # (A) 3.8 k/uL (1.3-7.7); Neutrophils % (A) 56 %; Platelet Count 243 k/uL (150-450); RBC 4.83 m/uL (3.80-5.40); RDW 12.7 % (11.5-15.5); WBC 6.9 k/uL (3.8-10.6)
[2018-04-08 00:12] LABS: Anion Gap 9 mmol/L; Blood Urea Nitrogen 6 mg/dL (7-17); Calcium 8.9 mg/dL (8.4-10.2); Carbon Dioxide 23 mmol/L (22-30); Chloride 108 mmol/L (98-107); Glucose 87 mg/dL (74-99); Potassium 3.8 mmol/L (3.5-5.1); Sodium 140 mmol/L (137-145)
[2018-04-08] MEDS: DIAZEPAM 5 MG TAB PO PRN ×3 (00:24→21:14)
[2018-04-08] MEDS: SODIUM CHLORIDE 0.9% 1,000 ML IV SCH ×3 (00:25→18:17)
[2018-04-08] MEDS: ONDANSETRON 4 MG/2 ML VIAL IVP PRN (04:46)
[2018-04-08] MEDS ORDERED: MAGNESIUM CITRATE 296 ML BOTTLE PO ONE (06:09)
[2018-04-08] MEDS: KETOROLAC 30 MG/ML 1 ML VIAL IVP PRN ×2 (07:52→21:12)
[2018-04-08] MEDS: TOPIRAMATE 25 MG TAB PO SCH (07:52)
[2018-04-08] MEDS: PANTOPRAZOLE 40 MG TABLET PO SCH (07:52)
[2018-04-08] MEDS: MECLIZINE 25 MG TAB PO SCH ×3 (07:54→21:14)
[2018-04-08] MEDS: HEPARIN SODIUM,PORCINE 5,000 UNIT/ML 1 ML VIAL SQ SCH ×2 (07:54→21:14)
[2018-04-08] MEDS ORDERED: PROPOFOL 10 MG/ML 20 ML VIAL IV ONE (14:17)
[2018-04-08] MEDS ORDERED: LIDOCAINE 1% INJ 10MG/ML (20 ML MDV) ONE (14:17)
[2018-04-08] MEDS ORDERED: IV FLUID CONTINUATION 700 ML IV ONE (14:19)
--- NOTE | 2018-04-08 14:47 | P.PCN ---
Date of Procedure: 04/08/18 Procedure(s) Performed: Brief history: Patient is a pleasant 37-year-old white female admitted to the hospital with severe abdominal pain and change in bowel habits. She is been exiting left upper quadrant abdominal pain on-and-off for the last 5 years progressively getting with in the last few weeks. She did have CT of the abdomen and pelvis done that was unremarkable. Because of the persistent symptoms she is scheduled for an upper endoscopy as well as colonoscopy. Procedure performed: Esophagogastroduodenoscopy with biopsy Colonoscopy with biopsy terminal ileum was intubated and 20 cm initially said appeared normal. Preoperative diagnosis: Left upper quadrant abdominal pain Change in bowel habits Anesthesia: MAC Procedure: After informed consent was obtained from the patient was brought into the endoscopy unit and IV sedation was administered by anesthesia under continuous monitoring. Initially upper endoscopy was done. The Olympus GF 160 video endoscope was inserted inserted into the mouth and esophagus intubated without any difficulty and was gradually advanced into the stomach and duodenum and carefully examined. The bulb and second part of the duodenum appeared normal. Biopsies were done from the duodenum to rule out celiac disease. The scope was then withdrawn into the stomach adequately insufflated with air and upon careful examination the antrum had linear erythema in the antrum consistent with mild gastritis and biopsies were done from this area. The body, cardia and fundus appeared normal. The scope was then withdrawn into the esophagus. The GE junction was located at 40 cm to the incisors. It appeared regular with no erythema erosions or ulcerations. Rest of the esophagus appeared normal. Patient tolerated the procedure well. At this time the patient continued to remain sedation. Initial digital rectal examination was normal. Olympus CF 160 video colonoscope was then inserted into the rectum and gradually advanced to the cecum without any difficulty. Careful examination was performed as the scope was gradually being withdrawn. The prep was excellent. Terminal terminal ileum was intubated that appeared normal. The cecum, ascending colon, transverse colon, descending colon, sigmoid colon and rectum appeared normal. Random biopsies were done from the terminal ileum, ascending and descending colon. Retroflexion was performed in the rectum and no lesions were noted. Patient tolerated the procedure well. Impression: 1. Upper endoscopy revealed mild antral gastritis but no evidence of esophagitis or peptic ulcer disease. 2. Colonoscopy was essentially within normal limits with no evidence of colitis or colorectal neoplasia Recommendations: Findings of this examination were discussed with the patient as well as a family. She was advised to follow with the biopsy results. Diet will be advanced as tolerated. Will start her on Bentyl 10 mg 3 times daily as needed for symptoms.
--- NOTE | 2018-04-08 17:32 | P.PN ---
Subjective this is pleasant 37 yo female who presents with vertigo , she is been evaluated by neurologist who recommended MRI and MRA of the brain ,which came back negative to suggest pain symptoms and signs also she has migrain headacke, topamax was added for her . she has chronic abd pain that has been getting worse over several months, its and the left upper abdomen radiating over to the back. Sometimes feels sharp sometimes feels queasy and sometimes is nonspecific as per patient. About 5-6/10 in severity. Associated with some nausea and vomiting and patient get worse with food. However abdominal exam is completely benign with no tenderness. GI consult has been called. Patient also complained from dysuria. Urinalysis is been requested 04/08/2018 Patient still complain of vertigo. She stated that she has tinnitus and drinking cells in both ears since this pain started about 1 week ago. And still the same. I made an appointment for patient's with the ENT as an outpatient in [place]. Patient and her both agrees to the location and timing of the appointments. Neurology recommended carotid complex. She underwent EGD/colonoscopy which showed mild gastritis, with no evidence of colitis or colorectal neoplasm on the colonoscopy. CONSTITUTIONAL: No fever, no malaise, no fatigue. HEENT: No recent visual problems or hearing problems. Denied any sore throat. CARDIOVASCULAR: No orthopnea, PND, no palpitations, no syncope. PULMONARY: No shortness of breath, no cough, no hemoptysis. GASTROINTESTINAL: . Normoactive bowel sounds. NEUROLOGICAL: No headaches, no weakness, no numbness. HEMATOLOGICAL: Denies any bleeding or petechiae. GENITOURINARY: Denies frequency, or urgency. MUSCULOSKELETAL/RHEUMATOLOGICAL: Denies any joint pain, swelling, or any muscle pain. ENDOCRINE: Denies any polyuria or polydipsia. Objective - Vital Signs Vital signs: Vital Signs Temp 98.1 F 04/08/18 12: Pulse 65 04/08/18 12:23 Resp 16 04/08/18 12:23 BP 97/57 04/08/18 12:23 Pulse Ox 100 04/08/18 12:23 Intake & Output 04/07/18 04/08/18 04/08/18 18:59 06:59 18:59 Intake Total 830 400 Balance 830 400 Weight 58.06 kg Intake: IV 400 Intake, IV Titration 350 Amount Sodium Chloride 0.9% 1, 350 000 ml @ 100 mls/hr IV . Q10H [facility] Rx#:[id number] Oral 480 Other: Voiding Method Toilet Toilet Toilet # Voids 3 4 # Bowel Movements 4 - Exam GENERAL: The patient is alert and oriented x3, not in any acute distress. Well developed, well nourished. HEENT: Pupils are round and equally reacting to light. EOMI. No scleral icterus. No conjunctival pallor. Normocephalic, atraumatic. No pharyngeal erythema. No thyromegaly. CARDIOVASCULAR: S1 and S2 present. No murmurs, rubs, or gallops. PULMONARY: Chest is clear to auscultation, no wheezing or crackles. ABDOMEN: Soft, nontender, nondistended, normoactive bowel sounds. No palpable organomegaly. MUSCULOSKELETAL: No joint swelling or deformity. EXTREMITIES: No cyanosis, clubbing, or pedal edema. NEUROLOGICAL: Gross neurological examination did not reveal any focal deficits. SKIN: No rashes. - Labs CBC & Chem 7: 04/07/18 23:45 04/07/18 23:45 Labs: Abnormal Lab Results - Last 24 Hours (Table) 04/07/18 Range/Units 23:45 Chloride 108 H (98-107) mmol/L BUN 6 L (7-17) mg/dL Assessment and Plan Assessment: vertigo chronic migraine chronic abdominal pain Dysuria Plan: this is a pleasant 37 yo f who peresnts with s/s of vertigo. pt is been evaluated by neurologist . her MRI/MRA was non reveling for a cause for her symptoms. Call GI consult for her abdominal pain. continue with the same treatment , continue with symptomatic treatment , resume home medication , monitor lytes and vitals including glucose , c/w iv fluids, cardiology consult is appreciated. infectious disease consult is appreciated . c /w same antibioitc . GI and DVT prophylaxis , further recommendation based upon pt clinical course and progress DVT prophylaxis subcutaneous heparin GI prophylaxis Pepcid PT/OT: pending Prognosis is guarded
[2018-04-08] MEDS: DICYCLOMINE 10 MG CAP PO SCH ×2 (18:10→21:15)
[2018-04-08] MEDS: LACTATED RINGERS 1,000 ML IV SCH (18:16)
--- NOTE | 2018-04-08 18:18 | US ---
EXAMINATION TYPE: US carotid duplex BILAT DATE OF EXAM: 04/08/2018 COMPARISON: NONE CLINICAL HISTORY: vertigo. EXAM MEASUREMENTS: RIGHT: Peak Systolic Velocity (PSV) cm/sec ----- Right CCA: 84.3 ----- Right ICA: 79.0 ----- Right ECA: 78.2 ICA/CCA ratio: 0.9 RIGHT: End Diastole cm/sec ----- Right CCA: 28.4 ----- Right ICA: 35.4 ----- Right ECA: 17.1 LEFT: Peak Systolic Velocity (PSV) cm/sec ----- Left CCA: 86.4 ----- Left ICA: 97.4 ----- Left ECA: 83.1 ICA/CCA ratio: 1.1 LEFT: End Diastole cm/sec ----- Left CCA: 25.9 ----- Left ICA: 22.6 ----- Left ECA: 17.1 VERTEBRALS (direction of flow): Right Vertebral: Antegrade Left Vertebral: Antegrade Rhythm: Normal No significant stenosis seen, no plaque seen. No elevated velocities. IMPRESSION: There is antegrade flow in the vertebral arteries. The images and measurements suggest 0 % stenosis in both internal carotid arteries. Criteria for Assigning % of Stenosis / Diameter reduction (Estimation based on the indirect measurements of the internal carotid artery velocities (ICA PSV). 1. Normal (no stenosis)=ICA PSV < 125 cm/s: ratio < 2.0: ICA EDV<40 cm/s. 2. Less than 50% stenosis=ICA PSV < 125 cm/s: ratio < 2.0: ICA EDV<40 cm/s. 3. 50 to 69% stenosis=ICA PSV of 125 to 230 cm/s: ration 2.0 ? 4.0: ICA EDV 40-100 cm/s. 4. Greater than 70% stenosis to near occlusion= ICA PSV > 230 cm/s: ratio > 4.0: ICA EDV > 100 cm/s. 5. Near occlusion= ICA PSV velocities may be low or undetectable: variable ratio and ICA EDV. 6. Total occlusion=unable to detect flow.
[2018-04-09] MEDS: SODIUM CHLORIDE 0.9% 1,000 ML IV SCH (06:16)
[2018-04-09] MEDS: KETOROLAC 30 MG/ML 1 ML VIAL IVP PRN ×3 (06:24→20:10)
[2018-04-09] MEDS: DIAZEPAM 5 MG TAB PO PRN ×3 (06:29→20:09)
[2018-04-09] MEDS: MECLIZINE 25 MG TAB PO PRN ×2 (08:41→22:47)
[2018-04-09] MEDS: HEPARIN SODIUM,PORCINE 5,000 UNIT/ML 1 ML VIAL SQ SCH ×2 (08:42→20:10)
[2018-04-09] MEDS: PANTOPRAZOLE 40 MG TABLET PO SCH (08:42)
[2018-04-09] MEDS: TOPIRAMATE 25 MG TAB PO SCH (08:42)
[2018-04-09] MEDS: DICYCLOMINE 10 MG CAP PO SCH (08:43)
--- NOTE | 2018-04-09 12:07 | PN ---
PROGRESS NOTE DATE OF DICTATION: 04/09/2018 Patient is a 37-year-old pleasant white female who was admitted to the hospital with severe left upper quadrant abdominal pain for the last few weeks' duration. She has been having intermittent abdominal pain and change in bowel habits of several years' duration. She underwent an upper endoscopy as well as colonoscopy which revealed gastritis, but normal colonoscopy. Multiple biopsies were done which are still pending at the time of this dictation. She was started on Bentyl, but patient had tried this medication in the past and did not want to take this again, as it did not work in the past. Today she still complains of some dizziness and left upper quadrant abdominal pain. No nausea or vomiting. Bowel movements are normal. PHYSICAL EXAMINATION: She appears comfortable. No apparent distress. VITAL SIGNS: Stable. Blood pressure 109/59, pulse 74, temperature 97. HEENT EXAMINATION: Unremarkable. Conjunctivae pink, sclerae anicteric, oral cavity no lesions. NECK: No JVD or lymph node enlargement. Chest was clear to auscultation. HEART: Regular rate and rhythm. ABDOMEN: Soft. Mild tenderness in the left upper quadrant area. EXTREMITIES: No pedal edema. SKIN: No rashes. NEUROLOGIC: Alert and oriented x3. No focal deficits. Labs from 2 days ago were all within normal limits. IMPRESSION: This is a lady who presents with left upper quadrant abdominal pain of several weeks' duration associated with alternating diarrhea and constipation of 5 years' duration. EGD and colonoscopy yesterday showed gastritis. Biopsies are still pending. Possible IBS. RECOMMENDATIONS: 1. Continue with her current medications. 2. Will start her on Carafate 1 gram 4 times daily. 3. She can be discharged home with an outpatient followup in 2 weeks. Thank you for this consultation. MMODL / IJN: [id number] /
[2018-04-09] MEDS: SUCRALFATE 1 GM TAB PO SCH ×3 (12:18→20:10)
[2018-04-09] MEDS: ONDANSETRON 4 MG/2 ML VIAL IVP PRN ×2 (14:38→19:44)
--- NOTE | 2018-04-09 16:52 | CONS ---
CONSULTATION This is a 37-year-old lady without any past medical history of significance. She came into the hospital with severe disabling vertigo. This happened somewhat suddenly and after arrival the vertigo has been persistent. When she was having episodes of dizziness, she was actually monitored and was in a sinus rhythm without any arrhythmia. I was asked to see her to rule out any cardiac etiology. She has history of chronic migraines. She used to take Topamax in the past, but she does not take that anymore on a regular basis. The sudden onset of dizziness and vertigo occurred in the midnight when she woke up and she bumped into the d[place]son. [place] very uncomfortable. She works in the back office of the chiropractor practice. She has been having some tinnitus in the left ear as well. She does not have any chest pain, shortness of breath, has no previous history of syncope. Please refer to other notes in the chart. MEDICATIONS: None. ALLERGIES: None. No known drug allergies. PHYSICAL EXAMINATION: Blood pressure is 120/70, pulse rate is about 70. HEENT: Unremarkable. Fundus was not examined by me. Neck is supple. No JVD. I do not hear a carotid bruit. There is no thyromegaly. Heart exam reveals S1, S2 heard normally in all areas without a rub, murmur or gallop. Lungs are clear. Abdomen is soft, nontender. Lower extremities reveal normal pulses. Central nervous exam was not performed. EKG revealed sinus mechanism with incomplete right bundle branch block pattern. No acute changes. IMPRESSION: 1. Vertigo, probably related to an ENT etiology. Workup is in progress. 2. There is no cardiac etiology to explain her vertigo. RECOMMENDATIONS: I will review the echocardiogram that was performed and make recommendations. Cardiac- cortes no intervention necessary and I will see the patient as needed. Thank you very much for the consult. MMODL / IJN: [id number] /
--- NOTE | 2018-04-10 07:26 | ECHOF ---
Referral Reason:vertigo MEASUREMENTS -------- HEIGHT: 160.0 cm WEIGHT: 58.1 kg BP: 117/64 RVIDd: 2.2 cm (< 3.3) IVSd: 1.0 cm (0.6 - 1.1) LVIDd: 3.8 cm (3.9 - 5.3) LVPWd: 1.0 cm (0.6 - 1.1) IVSs: 1.0 cm LVIDs: 2.8 cm LVPWs: 1.1 cm LAESV Index (A-L): 17.47 ml/m Ao Diam: 3.1 cm (2.0 - 3.7) AV Cusp: 1.8 cm (1.5 - 2.6) LA Diam: 2.0 cm (2.7 - 3.8) MV EXCURSION: 17.961 mm (> 18.000) MV EF SLOPE: 135 mm/s (70 - 150) EPSS: 0.4 cm MV E Huber: 0.84 m/s MV DecT: 257 ms MV A Huber: 0.59 m/s MV E/A Ratio: 1.42 RAP: 5.00 mmHg RVSP: 20.61 mmHg FINDINGS -------- Sinus rhythm. This was a technically good study. The left ventricular size is normal. Left ventricular wall thickness is normal. Overall left vent ricular systolic function is normal with, an EF between 55 - 60 %. The right ventricle is normal in size and function. Normal LA size by volume 22+/-6 ml/m2. The right atrium is normal in size. The aortic valve is trileaflet, and appears structurally normal. No aortic stenosis or regurgitation. The mitral valve is normal. There is trace to mild mitral regurgitation. Trace tricuspid regurgitation present. Right ventricular systolic pressure is normal at < 35 mmHg. There is no evidence of pulmonary hypertension. Trace/mild (physiologic) pulmonic regurgitation. The aortic root size is normal. Normal inferior vena cava with normal inspiratory collapse consistent with estimated right atrial pre ssure of 5 mmHg. There is no pericardial effusion. CONCLUSIONS -------- 1. Sinus rhythm. 2. This was a technically good study. 3. The left ventricular size is normal. 4. Left ventricular wall thickness is normal. 5. Overall left ventricular systolic function is normal with, an EF between 55 - 60 %. 6. Normal LA size by volume 22+/-6 ml/m2. 7. The aortic valve is trileaflet, and appears structurally normal. No aortic stenosis or regurgitati on. 8. There is trace to mild mitral regurgitation. 9. Trace tricuspid regurgitation present. 10. Right ventricular systolic pressure is normal at < 35 mmHg. 11. There is no evidence of pulmonary hypertension. 12. Trace/mild (physiologic) pulmonic regurgitation. 13. The aortic root size is normal. 14. There is no pericardial effusion. BOOM SUPERVISOR: Brandan Tang RDCS
[2018-04-10] MEDS: TOPIRAMATE 25 MG TAB PO SCH (08:34)
[2018-04-10] MEDS: SUCRALFATE 1 GM TAB PO SCH ×4 (08:34→19:56)
[2018-04-10] MEDS: PANTOPRAZOLE 40 MG TABLET PO SCH (08:34)
[2018-04-10] MEDS: HEPARIN SODIUM,PORCINE 5,000 UNIT/ML 1 ML VIAL SQ SCH ×2 (08:35→19:59)
[2018-04-10] MEDS: DIAZEPAM 5 MG TAB PO PRN ×2 (08:38→19:56)
[2018-04-10] MEDS: ONDANSETRON 4 MG/2 ML VIAL IVP PRN ×2 (08:39→16:59)
--- NOTE | 2018-04-10 12:35 | PN ---
PROGRESS NOTE DATE OF SERVICE: 04/10/2018. HISTORY: The patient is a 37-year-old pleasant white female admitted to hospital with abdominal pain and change in bowel habits. She underwent an EGD and colonoscopy 2 days ago, which showed gastritis. The colonoscopy was normal. Biopsies are still pending. She was tried on Bentyl with no relief in her symptoms. Yesterday was started on Carafate 1 g 4 times daily and she is feeling somewhat better. She still has some nausea and occasional diarrhea. She complains of severe dizziness. Cardiology is evaluating the patient and she is scheduled for a 2D echo today. PHYSICAL EXAMINATION: Appears comfortable, in no apparent distress. VITAL SIGNS: Stable. Blood pressure is 105/68, pulse rate 78, temperature 98.8. HEENT examination unremarkable. Conjunctivae pink. Sclerae nonicteric. Oral cavity no lesions. NECK: No JVD or lymph node enlargement. CHEST: Clear to auscultation. HEART: Regular rate and rhythm. ABDOMEN: Soft. Bowel sounds are positive. No organomegaly. EXTREMITIES: No pedal edema. SKIN: No rashes. NEUROLOGIC: Alert and oriented x3. No focal deficits. LABS: From today, WBC is 6.9, hemoglobin 13.3, platelets are normal. Basic metabolic panel is within normal limits. IMPRESSION: 1. Left upper quadrant abdominal pain with intermittent nausea, vomiting, diarrhea of several months several years duration. Recent EGD and colonoscopy, as mentioned above, showed gastritis and normal colonoscopy. Biopsies are still pending. She is empirically on Carafate and Protonix with some improvement in her symptoms. 2. Dizziness, for which Cardiology is following the patient closely. RECOMMENDATIONS: 1. Continue with Protonix and Carafate. 2. Zofran as needed. 3. Advance diet as tolerated. 4. She was advised to follow up in office in a week following discharge from the hospital. Thank you for this consultation. MMODL / IJN: [id number] /
[2018-04-10] MEDS ORDERED: KETOROLAC 30 MG/ML 1 ML VIAL IVP ONE (15:25)
--- NOTE | 2018-04-10 16:08 | XR ---
EXAMINATION TYPE: XR abdomen 1V DATE OF EXAM: 04/10/2018 COMPARISON: NONE HISTORY: Abdominal pain TECHNIQUE: 2 views supine FINDINGS: Bowel gas pattern is normal. There is no sign of intestinal obstruction or pneumoperitoneum . Fecal pattern is normal. There are phleboliths in the pelvis. Sacroiliac joints are intact. Bony st ructures are intact. There are no pathologic calcifications over the kidneys. Lung bases are clear. IMPRESSION: Nonacute abdomen.
--- NOTE | 2018-04-10 17:32 | P.PN ---
Subjective this is pleasant 37 yo female who presents with vertigo , she is been evaluated by neurologist who recommended MRI and MRA of the brain ,which came back negative to suggest pain symptoms and signs also she has migrain headacke, topamax was added for her . she has chronic abd pain that has been getting worse over several months, its and the left upper abdomen radiating over to the back. Sometimes feels sharp sometimes feels queasy and sometimes is nonspecific as per patient. About 5-6/10 in severity. Associated with some nausea and vomiting and patient get worse with food. However abdominal exam is completely benign with no tenderness. GI consult has been called. Patient also complained from dysuria. Urinalysis is been requested 04/08/2018 Patient still complain of vertigo. She stated that she has tinnitus and drinking cells in both ears since this pain started about 1 week ago. And still the same. I made an appointment for patient's with the ENT as an outpatient in [place]. Patient and her both agrees to the location and timing of the appointments. Neurology recommended carotid complex. She underwent EGD/colonoscopy which showed mild gastritis, with no evidence of colitis or colorectal neoplasm on the colonoscopy. 04/09/2018 pt today feels a little better , however she needed walker for ambulation 04/09/2018 Patient was seen and examined today at bedside patient was originally cleared by all consultants for discharge. And came to see the patient in the morning and she was agreement to be discharged later on during the day. When a Second time patient was asleep and woke her up she was told me she was feeling fine her dizziness looks better. And the workers been delivered to her. However she wants those stockings she said her abdominal pain was increasing. And within a few minutes she said it's becoming more severe and that she feels nausea. We'll repeat abdominal x-ray which shows no acute abdomen. However, later evaluation patient was insistent on seeing a urologist for her kidney cyst. A consult has been placed for urologist. Patient also vomited bile substance. CONSTITUTIONAL: No fever, no malaise, no fatigue. HEENT: No recent visual problems or hearing problems. Denied any sore throat. CARDIOVASCULAR: No orthopnea, PND, no palpitations, no syncope. PULMONARY: No shortness of breath, no cough, no hemoptysis. GASTROINTESTINAL: . Normoactive bowel sounds. NEUROLOGICAL: No headaches, no weakness, no numbness. HEMATOLOGICAL: Denies any bleeding or petechiae. GENITOURINARY: Denies frequency, or urgency. MUSCULOSKELETAL/RHEUMATOLOGICAL: Denies any joint pain, swelling, or any muscle pain. ENDOCRINE: Denies any polyuria or polydipsia. Objective - Vital Signs Vital signs: Vital Signs Temp 98 F 04/10/18 11:40 Pulse 71 04/10/18 11:40 Resp 18 04/10/18 11:40 BP 108/53 04/10/18 11:40 Pulse Ox 98 04/10/18 11:40 Intake & Output 04/09/18 04/10/18 04/10/18 18:59 06:59 18:59 Intake Total 800 200 Balance 800 200 Weight 58.06 kg Intake: Intake, IV Titration 800 Amount Sodium Chloride 0.9% 1, 800 000 ml @ 100 mls/hr IV . Q10H [facility] Rx#:[id number] Oral 200 Other: Voiding Method Toilet Toilet Toilet # Voids 1 3 - Exam GENERAL: The patient is alert and oriented x3, not in any acute distress. Well developed, well nourished. HEENT: Pupils are round and equally reacting to light. EOMI. No scleral icterus. No conjunctival pallor. Normocephalic, atraumatic. No pharyngeal erythema. No thyromegaly. CARDIOVASCULAR: S1 and S2 present. No murmurs, rubs, or gallops. PULMONARY: Chest is clear to auscultation, no wheezing or crackles. ABDOMEN: Soft, nontender, nondistended, normoactive bowel sounds. No palpable organomegaly. MUSCULOSKELETAL: No joint swelling or deformity. EXTREMITIES: No cyanosis, clubbing, or pedal edema. NEUROLOGICAL: Gross neurological examination did not reveal any focal deficits. SKIN: No rashes. - Labs CBC & Chem 7: 04/07/18 23:45 04/07/18 23:45 Assessment and Plan Assessment: vertigo chronic migraine chronic abdominal pain Dysuria Plan: this is a pleasant 37 yo f who peresnts with s/s of vertigo. pt is been evaluated by neurologist . her MRI/MRA was non reveling for a cause for her symptoms. Call GI consult for her abdominal pain. continue with the same treatment , continue with symptomatic treatment , resume home medication , monitor lytes and vitals including glucose , c/w iv fluids, cardiology consult is appreciated. infectious disease consult is appreciated . c /w same antibioitc . GI and DVT prophylaxis , further recommendation based upon pt clinical course and progress DVT prophylaxis subcutaneous heparin GI prophylaxis Pepcid PT/OT: pending Prognosis is guarded
[2018-04-10] MEDS: MECLIZINE 25 MG TAB PO PRN (22:25)
--- NOTE | 2018-04-11 06:17 | P.CONS ---
History of Present Illness - Chief Complaint Dizziness and vertigo - History of Present Illness I had the opportunity to see patient for inpatient rib consultation with regard to gait disturbance related to dizziness and vertigo. She was admitted to [facility] April 05 with abdominal pain and vertigo. Seen and consultations by serenity Carrillo and Joselito Rodriguez. Dr. Rodriguez performed colonoscopy which was within normal limits. Patient had normal abdominal x-ray, carotid Doppler, head MRI, head CT, KUB. Brain MRI demonstrated right maxillary sinusitis, only. OT reports modified independent with a basic self-care tasks and mobility. PT reports supervision for gait 80 feet with roller walker. Previous functional history as elicited from patient: 37-year-old right-handed white female who is lives and 2 floor home with and 2 kids. Works full-time. [employer]. Doesn't smoke or drink. Dr. Lemos is regular doctor. Family history both parents with hypertension, heart disease and diabetes. Review of Systems Review of systems: ENT: Denies sneezes or discharge. Eyes: Denies discharge or photophobia. Cardiac: Denies chest pain or palpitation. Pulmonary: Denies cough or shortness of breath. Breast: Denies discharge or lumps. Gastrointestinal: Denies nausea, emesis, constipation, diarrhea. Genitourinary: Denies discharge or frequency. Musculoskeletal: Denies muscle or bone aches. Neurologic: Complains of dizziness when she doesn't get her medication. Endocrine: Denies shakes or sweats. Oncology: Denies cancers. Dermatologic: Denies rash, itching, pruritus. ALLERGY/immunology: Denies sneezes, rashes. Past Medical History Past Medical History: Seizure Disorder, Skin Disorder, Thyroid Disorder Additional Past Medical History / Comment(s): DERMAGRAPHISM ibs, chronic abdominal pain-to have US on 04/13/18, past hypothyroid but no longer issue, one seizure as an infant and was comatose for 5 days, migraines, hypoglycemia. History of Any Multi-Drug Resistant Organisms: None Reported Past Surgical History: Hysterectomy, Uterine Ablation Additional Past Surgical History / Comment(s): D&C x2m hysteroscopy with uterine ablation Past Anesthesia/Blood Transfusion Reactions: No Reported Reaction Past Psychological History: No Psychological Hx Reported Additional Psychological History / Comment(s): Pt resides with her spouse and 2 out of their 3 children. Oldest child no longer lives at home. Pt works for [employer]. Smoking Status: Never smoker Past Alcohol Use History: None Reported Past Drug Use History: None Reported - Past Family History Mother Family Medical History: Diabetes Mellitus, Hyperlipidemia, Hypertension Additional Family Medical History / Comment(s): Hypomagnesemia. Father Family Medical History: Chest Pain / Angina, Coronary Artery Disease (CAD), Hypertension, Myocardial Infarction ([place]) Additional Family Medical History / Comment(s): Father had his first [place] in his mid 50s. Medications and Allergies Home Medications Medication Instructions Recorded Confirmed Type Acetaminophen Tab [Tylenol] 650 mg PO Q6HR PRN tab 04/10/18 Rx Diazepam [Valium] 5 mg PO DAILY PRN #3 tab 04/10/18 Rx Meclizine [Antivert] 50 mg PO BID PRN #120 tab 04/10/18 Rx Ondansetron HCl [Zofran] 4 mg PO Q4H PRN #16 tablet 04/10/18 Rx Pantoprazole [Protonix] 40 mg PO AC-BRKFST #30 tablet. 04/10/18 Rx Sucralfate [Carafate] 1 gm PO ACHS #30 tab 04/10/18 Rx Topiramate [Topamax] 25 mg PO DAILY #30 tab 04/10/18 Rx Allergies Allergy/AdvReac Type Severity Reaction Status Date / Time Latex, Natural Rubber Allergy Unknown Verified 04/05/18 09:09 Physical Exam Vitals: Vital Signs Temp Pulse Pulse Resp BP Pulse Ox 04/11/18 05:00 97.9 F 72 18 108/64 99 04/10/18 21:00 98 F 67 18 97/61 97 04/10/18 11:40 98 F 71 18 108/53 98 Intake and Output 04/10/18 04/10/18 04/11/18 14:59 22:59 06:59 Intake Total 300 Balance 300 Intake: Oral 300 Other: Voiding Method Toilet Toilet # Voids 3 1 Skin: Good color, texture, turgor. General: Thin to medium build and comfortable appearance. Head: Normocephalic, atraumatic. Eyes: Symmetric. Pupils equal round. Ears: Symmetric. Hearing within normal limits. Mouth: Clear. Neck: Supple. Carotid without bruit. Cardiac: Regular rate and rhythm. Lungs: Clear anteriorly and posteriorly. Abdomen: Soft active nontender. Extremities: Normal tone. Neurological: Mental status: Alert, cooperative, pleasant. Cranial nerves: Symmetric facial tone and trapezius. Motor: Normal strength and isolation all 4 limbs. Sensation: Intact throughout. DTRs: Symmetric and equal throughout. Mobility: Bed mobility without assistance. Results CBC & Chem 7: 04/07/18 23:45 04/07/18 23:45 Assessment and Plan (1) Abdominal pain Current Visit: Yes Status: Acute Code(s): R10.9 - UNSPECIFIED ABDOMINAL PAIN SNOMED Code(s): 98163406 (2) Vertigo Current Visit: Yes Status: Acute Code(s): R42 - DIZZINESS AND GIDDINESS SNOMED Code(s): 408014203 Plan: Impression: 1. Gait disturbance. 2. Dizziness and vertigo. 3. Abnormal headache. 4. Abdominal pain with history of IBS. Comments and plan: At this time PT and OT are ongoing. Patient is modified independent with OT and supervision with PT. At this time, patient to good for full inpatient rehab. Should note patient may have history of seizure disorder as well.
[2018-04-11] MEDS ORDERED: ONDANSETRON 4 MG TAB PO PRN (06:56)
--- NOTE | 2018-04-11 07:19 | P.GSCN ---
History of Present Illness Consult date: 04/11/18 Reason for Consult: Left renal cyst History of present illness: The patient is a 37-year-old female who came in the hospital with persistent abdominal pain as well as vertigo. The vertigo is no onset and they have yet to identify the exact cause. The abdominal pain is long-standing. Computed tomography scan of the abdomen was obtained identifying a simple left renal cyst 9 x 8 cm. The patient states that this pain is been for a long time. She notices the pain in the left upper quadrant especially when her bowel gets full. She states she can feel "food" go by it. She has had simple bladder infections in the past. There's been no kidney infection. There is no history kidney stones. She did have a hysterectomy for benign disease. She has no major back problems. She has intermittent constipation and diarrhea. She states she is quite bothered by this abdominal discomfort in the left upper quadrant. Review of Systems - Constitutional Reports anorexia, Reports chronic pain - EENT Ears, nose, mouth and throat: Reports vertigo - Gastrointestinal Reports as per HPI, Reports abdominal pain - Genitourinary Genitourinary: Reports as per HPI Past Medical History Past Medical History: Seizure Disorder, Skin Disorder, Thyroid Disorder Additional Past Medical History / Comment(s): DERMAGRAPHISM ibs, chronic abdominal pain-to have US on 04/13/18, past hypothyroid but no longer issue, one seizure as an and was comatose for 5 days, migraines, hypoglycemia. History of Any Multi-Drug Resistant Organisms: None Reported Past Surgical History: Hysterectomy, Uterine Ablation Additional Past Surgical History / Comment(s): D&C x2m hysteroscopy with uterine ablation Past Anesthesia/Blood Transfusion Reactions: No Reported Reaction Past Psychological History: No Psychological Hx Reported Additional Psychological History / Comment(s): Pt resides with her spouse and 2 out of their 3 children. Oldest child no longer lives at home. Pt works for [employer]. Smoking Status: Never smoker Past Alcohol Use History: None Reported Past Drug Use History: None Reported - Past Family History Mother Family Medical History: Diabetes Mellitus, Hyperlipidemia, Hypertension Additional Family Medical History / Comment(s): Hypomagnesemia. Father Family Medical History: Chest Pain / Angina, Coronary Artery Disease (CAD), Hypertension, Myocardial Infarction ([place]) Additional Family Medical History / Comment(s): Father had his first [place] in his mid 50s. Medications and Allergies Home Medications Medication Instructions Recorded Confirmed Type Acetaminophen Tab [Tylenol] 650 mg PO Q6HR PRN tab 04/10/18 Rx Diazepam [Valium] 5 mg PO DAILY PRN #3 tab 04/10/18 Rx Meclizine [Antivert] 50 mg PO BID PRN #120 tab 04/10/18 Rx Ondansetron HCl [Zofran] 4 mg PO Q4H PRN #16 tablet 04/10/18 Rx Pantoprazole [Protonix] 40 mg PO AC-BRKFST #30 tablet. 04/10/18 Rx Sucralfate [Carafate] 1 gm PO ACHS #30 tab 04/10/18 Rx Topiramate [Topamax] 25 mg PO DAILY #30 tab 04/10/18 Rx Allergies Allergy/AdvReac Type Severity Reaction Status Date / Time Latex, Natural Rubber Allergy Unknown Verified 04/05/18 09:09 Surgical - Exam Vital Signs Temp Pulse Resp BP Pulse Ox 98.6 F 66 20 117/86 100 04/05/18 08:55 04/05/18 08:55 04/05/18 08:55 04/05/18 08:55 04/05/18 08:55 - General well developed, well nourished, moderate distress - Eyes PERRL - ENT no hearing loss - Neck no masses - Respiratory normal expansion - Cardiovascular Rhythm: regular - Abdomen Abdomen: soft, non tender - Integumentary no rash, no growths - Neurologic normal coordination, normal sensation - Musculoskeletal normal posture - Psychiatric oriented to time, oriented to person, oriented to place, speech is normal Results - Labs 04/07/18 23:45 04/07/18 23:45 - Imaging CT scan - abdomen: report reviewed, image reviewed CT scan - pelvis: report reviewed, image reviewed Assessment and Plan Assessment: Impression: Left renal cyst, class I, large. Upper quadrant pain and fullness. Dizziness. Anxiety. Recommendations. This 9 cm left renal cyst could be causing her sensation of fullness. With her level of anxiety this fullness could turn into notable discomfort. An option would be to do a percutaneous drainage to see if it relieved her of her discomfort. If so then she may at some point in time need a surgical decortication. The risks of a percutaneous drainage including pain infection bleeding injury to the kidney injury adjacent organs loss and kidneys as well as failure to control the pain have been explained and understood and accepted by this patient. I will make arrangements to see if this can be done here in the next 24 hours.
[2018-04-11] MEDS: HEPARIN SODIUM,PORCINE 5,000 UNIT/ML 1 ML VIAL SQ SCH ×2 (08:10→20:35)
[2018-04-11] MEDS: SUCRALFATE 1 GM TAB PO SCH ×4 (08:11→20:35)
[2018-04-11] MEDS: PANTOPRAZOLE 40 MG TABLET PO SCH (08:11)
[2018-04-11] MEDS: TOPIRAMATE 25 MG TAB PO SCH (08:11)
[2018-04-11] MEDS: MECLIZINE 25 MG TAB PO PRN (08:43)
[2018-04-11 10:30] LABS: Prothrombin Time 10.5 sec (9.0-12.0)
--- NOTE | 2018-04-11 13:55 | CT ---
EXAMINATION TYPE: CT renal cyst aspiration DATE OF EXAM: 04/11/2018 COMPARISON: Left renal cyst with abdominal pain HISTORY: Renal cyst drainage CT DLP: 581 mGycm The procedure is discussed with the patient, the risks, complications, benefits and alternatives, wer e discussed and any questions were answered. Informed consent was obtained. The patient is placed p carli on the CT table, prepped and draped in the usual sterile fashion. Utilizing a one-step needle system access into the left renal cyst was achieved with removal of appro ximately 270 cc cc of clear serous fluid. Sample sent to pathology for analysis. All elements of max imal barrier and sterile technique were utilized. The patient remained stable throughout the procedu re with no immediate postprocedural complication. IMPRESSION: 1. Successful CT guided fine needle aspiration of a large left renal cyst
--- NOTE | 2018-04-11 21:20 | P.PN ---
Subjective this is pleasant 37 yo female who presents with vertigo , she is been evaluated by neurologist who recommended MRI and MRA of the brain ,which came back negative to suggest pain symptoms and signs also she has migrain headacke, topamax was added for her . she has chronic abd pain that has been getting worse over several months, its and the left upper abdomen radiating over to the back. Sometimes feels sharp sometimes feels queasy and sometimes is nonspecific as per patient. About 5-6/10 in severity. Associated with some nausea and vomiting and patient get worse with food. However abdominal exam is completely benign with no tenderness. GI consult has been called. Patient also complained from dysuria. Urinalysis is been requested 04/08/2018 Patient still complain of vertigo. She stated that she has tinnitus and drinking cells in both ears since this pain started about 1 week ago. And still the same. I made an appointment for patient's with the ENT as an outpatient in [place]. Patient and her both agrees to the location and timing of the appointments. Neurology recommended carotid complex. She underwent EGD/colonoscopy which showed mild gastritis, with no evidence of colitis or colorectal neoplasm on the colonoscopy. 04/09/2018 pt today feels a little better , however she needed walker for ambulation 04/10/2018 Patient was seen and examined today at bedside patient was originally cleared by all consultants for discharge. And came to see the patient in the morning and she was agreement to be discharged later on during the day. When a Second time patient was asleep and woke her up she was told me she was feeling fine her dizziness looks better. And the workers been delivered to her. However she wants those stockings she said her abdominal pain was increasing. And within a few minutes she said it's becoming more severe and that she feels nausea. We'll repeat abdominal x-ray which shows no acute abdomen. However, later evaluation patient was insistent on seeing a urologist for her kidney cyst. A consult has been placed for urologist. Patient also vomited bile substance. 04/11/2018 pt was still complaining from abd pain , with some n/v that prevented her from being discharged yesterday , with the all work up came back negative, we called urology consult who recommended to do aspiration of the cyst as this might help relieve her symptoms. it was suggested by the urologist to do cyst aspiration. 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 pt states to me earlier her dizziness was improving . CONSTITUTIONAL: No fever, no malaise, no fatigue. HEENT: No recent visual problems or hearing problems. Denied any sore throat. CARDIOVASCULAR: No orthopnea, PND, no palpitations, no syncope. PULMONARY: No shortness of breath, no cough, no hemoptysis. GASTROINTESTINAL: . Normoactive bowel sounds. NEUROLOGICAL: No headaches, no weakness, no numbness. HEMATOLOGICAL: Denies any bleeding or petechiae. GENITOURINARY: Denies frequency, or urgency. MUSCULOSKELETAL/RHEUMATOLOGICAL: Denies any joint pain, swelling, or any muscle pain. ENDOCRINE: Denies any polyuria or polydipsia. Objective - Vital Signs Vital signs: Vital Signs Temp 98.5 F 04/11/18 16:00 Pulse 79 04/11/18 16:00 Resp 16 04/11/18 16:00 BP 120/72 04/11/18 16:00 Pulse Ox 97 04/11/18 16:00 Intake & Output 04/11/18 04/11/18 04/12/18 06:59 18:59 06:59 Intake Total 300 480 Balance 300 480 Weight 57.8 kg Intake: Oral 300 480 Other: Voiding Method Toilet Toilet # Voids 1 1 - Exam GENERAL: The patient is alert and oriented x3, not in any acute distress. Well developed, well nourished. HEENT: Pupils are round and equally reacting to light. EOMI. No scleral icterus. No conjunctival pallor. Normocephalic, atraumatic. No pharyngeal erythema. No thyromegaly. CARDIOVASCULAR: S1 and S2 present. No murmurs, rubs, or gallops. PULMONARY: Chest is clear to auscultation, no wheezing or crackles. ABDOMEN: Soft, nontender, nondistended, normoactive bowel sounds. No palpable organomegaly. MUSCULOSKELETAL: No joint swelling or deformity. EXTREMITIES: No cyanosis, clubbing, or pedal edema. NEUROLOGICAL: Gross neurological examination did not reveal any focal deficits. SKIN: No rashes. - Labs CBC & Chem 7: 04/07/18 23:45 04/07/18 23:45 Assessment and Plan Assessment: vertigo chronic migraine chronic abdominal pain Dysuria Plan: this is a pleasant 37 yo f who peresnts with s/s of vertigo. pt is been evaluated by neurologist . her MRI/MRA was non reveling for a cause for her symptoms. Call GI consult for her abdominal pain. continue with the same treatment , continue with symptomatic treatment , resume home medication , monitor lytes and vitals including glucose , c/w iv fluids, cardiology consult is appreciated. infectious disease consult is appreciated . c /w same antibioitc . GI and DVT prophylaxis , further recommendation based upon pt clinical course and progress DVT prophylaxis subcutaneous heparin GI prophylaxis Pepcid PT/OT: pending Prognosis is guarded
[2018-04-12 05:46] LABS: Basophils # (A) 0.1 k/uL (0-0.2); Basophils % (A) 1 %; Eosinophils # (A) 0.7 k/uL (0-0.7); Eosinophils % (A) 10 %; HCT 42.8 % (34.0-46.0); HGB 13.8 gm/dL (11.4-16.0); Lymphocytes # (A) 1.9 k/uL (1.0-4.8); Lymphocytes % (A) 27 %; MCH 27.7 pg (25.0-35.0); MCHC 32.1 g/dL (31.0-37.0); MCV 86.4 fL (80.0-100.0); Mean Platelet Volume 6.8; Monocytes # (A) 0.5 k/uL (0-1.0); Monocytes % (A) 7 %; Neutrophils # (A) 3.8 k/uL (1.3-7.7); Neutrophils % (A) 54 %; Platelet Count 248 k/uL (150-450); RBC 4.96 m/uL (3.80-5.40); RDW 12.5 % (11.5-15.5); WBC 7.1 k/uL (3.8-10.6)
[2018-04-12 06:02] LABS: Anion Gap 8 mmol/L; Blood Urea Nitrogen 15 mg/dL (7-17); Carbon Dioxide 24 mmol/L (22-30); Chloride 106 mmol/L (98-107); Glucose 89 mg/dL (74-99); Potassium 4.3 mmol/L (3.5-5.1); Sodium 138 mmol/L (137-145)
[2018-04-12] MEDS: PANTOPRAZOLE 40 MG TABLET PO SCH (06:45)
[2018-04-12] MEDS: SUCRALFATE 1 GM TAB PO SCH (06:45)
--- NOTE | 2018-04-12 07:38 | P.PN ---
Subjective Progress Note Date: 04/12/18 The patient underwent left renal cyst aspiration yesterday. Approximately 250 mL of clear fluid was drained. Remarkably her left upper quadrant pain as well as her dizziness has completely disappeared. Her vital signs are stable. There is no pain. She is afebrile. From a urologic standpoint she can be discharged home. I like to see her in 2 weeks. I discussed with her the fact that this would most likely reaccumulated some point in time. If it does and her symptoms return we will discuss how we would surgically want to remove this as aspiration usually is just a temporary treatment. She understands. I will see her in the office in 2 weeks. Objective - Vital Signs Vital signs: Vital Signs Temp 98.0 F 04/12/18 04:00 Pulse 64 04/12/18 04:00 Resp 16 04/12/18 04:00 BP 111/72 04/12/18 04:00 Pulse Ox 95 04/12/18 04:00 Intake & Output 04/11/18 04/12/18 04/12/18 18:59 06:59 18:59 Intake Total 480 Balance 480 Weight 57.8 kg Intake: Oral 480 Other: Voiding Method Toilet # Voids 1 1 - Labs CBC & Chem 7: 04/12/18 05:31 04/12/18 05:31
[2018-04-12] MEDS: TOPIRAMATE 25 MG TAB PO SCH (09:15)
[2018-04-12] MEDS: HEPARIN SODIUM,PORCINE 5,000 UNIT/ML 1 ML VIAL SQ SCH (09:17)
[2018-04-12 12:40] VITALS: BP 101/67; PULSE 78; RESP 16; TEMP 98.2
--- NOTE | 2018-04-23 18:29 | P.DS ---
Providers Date of admission: 04/08/18 15:25 Attending physician: Erik Mehta Consults: 04/05/18 13:59 Consult Physician Routine Consulting Provider: Amisha Chaudhari Consult Reason/Comments: Vertigo Do you want consulting provider notified?: Yes 04/07/18 08:33 Consult Physician Routine Consulting Provider: Deonna Rodriguez Consult Reason/Comments: abdominal pain Do you want consulting provider notified?: Yes 04/07/18 12:26 Consult Physician Routine Consulting Provider: Darron Salcedo Consult Reason/Comments: tinnitus, vertigo Do you want consulting provider notified?: Yes 04/09/18 08:33 Consult Physician Routine Consulting Provider: Rosalia Craig Consult Reason/Comments: vertigo Do you want consulting provider notified?: Yes 04/09/18 19:31 Consult Physician Routine Consulting Provider: Cristiano Cody Consult Reason/Comments: dizziness for evalution Do you want consulting provider notified?: Yes 04/10/18 17:25 Consult Physician Routine Consulting Provider: Owen Barcenas Consult Reason/Comments: renal cyst Do you want consulting provider notified?: Yes Primary care physician: [facility] Course: This is a pleasant 37 years old female who presents because of dizziness and tinnitus, abdominal discomfort and pain with nausea vomiting. Patient found to have left renal cyst initially thought about 3 cm are as per radiology report. Neurologistl evaluated the patient and estimated this to be 8-9 cm in size. Patient underwent intervention radiological aspiration of about 270 mm of fluid. Fluid cytology is still pending and patient is aware of its and instructed to follow up with her PCP and urologist. After fluid aspiration on the day of discharge patient all her symptoms are completely resolved. No more dizziness or tinnitus. No more abdominal pain or upset. No nausea vomiting. Patient is eating well towards and diet. Patient can walk. pt was happy and excited all her symptoms were resolved. Patient was placed and wanted to be discharged today. Urologist recommended outpatient follow-up in 2 weeks and patient is aware of this. Patient is aware of the possible recurrence of the nature of her cyst. Other consultants evaluated the patient for her systems and workup was unrevealing. Patient was cleared for discharge by urology and other services Patient problems and management plan was discussed in details and she verbalized understanding and acceptance Patient's was subsequently discharged home however she needs follow-up as an outpatient physical exam Gen.: Patient alert awake and oriented X 3, NOT IN DISTRESS CVS: s1-s2, RRR, no murmur CHEST:bilateral CTA, no wheezing or crepitation Abdomen: Soft, no tenderness, no distention, positive bowel sounds Extremities: No leg edema or induration Time spent more than 35 minutes Patient Condition at Discharge: Stable Plan - Discharge Summary Discharge Rx Participant: No New Discharge Prescriptions: No Action Phenylephrine HCl/Acetaminophn [Sudafed PE Pressure+Pain Cplt] 1 tab PO Q4H Levofloxacin [Levaquin] 750 mg PO DAILY #5 tab Ketorolac [Toradol] 10 mg PO Q6HR #12 tab Discharge Medication List Levofloxacin [Levaquin] 750 mg PO DAILY #5 tab 04/18/18 [Rx] Phenylephrine HCl/Acetaminophn [Sudafed PE Pressure+Pain Cplt] 1 tab PO Q4H [History] Ketorolac [Toradol] 10 mg PO Q6HR #12 tab 04/19/18 [Rx] Follow up Appointment(s)/Referral(s): Rena Corral MD [REFERRING] - 04/11/18 3:20 pm (ENT. please note the correct address as below : adress: [id number], [address]. [place] [address] bring your ID and insurance card) Deonna Rodriguez MD [STAFF PHYSICIAN] - 1 Week (call wednesday to make appt. for biopy results. office closed at time of discharged) Amisha Chaudhari MD [STAFF PHYSICIAN] - 10 Days (neurologist) Darron Salcedo MD [STAFF PHYSICIAN] - 05/18/18 10:00 am Anika Lemos MD [Primary Care Provider] - 04/14/18 11:30 am (with RN Radha ) Owen Barcenas MD [STAFF PHYSICIAN] - 2 Weeks Patient Instructions/Handouts: Kidney Cyst (GEN) Activity/Diet/Wound Care/Special Instructions: resume your diet activity is limited till you see your doctor Discharge Disposition: HOME SELF-CARE
== END 2018-04-12 14:23 | disposition home or self-care (01) | DRG 700 ==
LOC: EC 08:52 → 3NMEDONC 13:55 → OBSVTOIN 04-08 15:25 → 6PED 04-11 08:50
PROVIDERS: ADMIT Hospitalist; ATTEND Hospitalist
PROC: 0DBM8ZX Excision of Descending Colon, Via Natural or Artificial Opening Endoscopic, Diagnostic (ICD-10-PCS; principal; 2018-04-08 14:10)
PROC: 0DB78ZX Excision of Stomach, Pylorus, Via Natural or Artificial Opening Endoscopic, Diagnostic (ICD-10-PCS; principal; 2018-04-08 14:10)
PROC: 0DBK8ZX Excision of Ascending Colon, Via Natural or Artificial Opening Endoscopic, Diagnostic (ICD-10-PCS; principal; 2018-04-08 14:10)
PROC: 0DB98ZX Excision of Duodenum, Via Natural or Artificial Opening Endoscopic, Diagnostic (ICD-10-PCS; principal; 2018-04-08 14:10)
PROC: 0DBB8ZX Excision of Ileum, Via Natural or Artificial Opening Endoscopic, Diagnostic (ICD-10-PCS; principal; 2018-04-08 14:10)
PROC: 0T913ZZ Drainage of Left Kidney, Percutaneous Approach (ICD-10-PCS; 2018-04-11)
DX: N28.1 Cyst of kidney, acquired (principal); E03.9 Hypothyroidism, unspecified; F41.9 Anxiety disorder, unspecified; G40.909 Epilepsy, unspecified, not intractable, without status epilepticus; G43.909 Migraine, unspecified, not intractable, without status migrainosus; G89.29 Other chronic pain; H93.12 Tinnitus, left ear; J32.0 Chronic maxillary sinusitis; K29.60 Other gastritis without bleeding; K58.0 Irritable bowel syndrome with diarrhea; Z79.899 Other long term (current) drug therapy; Z80.0 Family history of malignant neoplasm of digestive organs; Z82.49 Family history of ischemic heart disease and other diseases of the circulatory system; Z83.3 Family history of diabetes mellitus; Z90.710 Acquired absence of both cervix and uterus
CPT/HCPCS: 36415; 43239; 45380; 50390; 70450; 70544; 70551; 74018; 74176; 77012; 80048; 80053; 81001; 81003; 81025; 82150; 82550; 82553; 82607; 82626; 82670; 83001; 83690; 84443; 84484; 85025; 85610; 88173; 88305; 93005; 93306; 93880; 96361; 96374; 96375; 99285

== ENCOUNTER 2018-04-18 20:29 | Emergency (ER) | payer OTHER ==
[2018-04-18 21:37] LABS: Appearance,Urine Clear (Clear); Bacteria,Urine Rare /hpf; Bilirubin,Urine Negative (Negative); Blood,Urine Trace (Negative); Color,Urine Yellow; Glucose,Urine (UA) Negative (Negative); Ketones,Urine 2+ (Negative); Leukocyte Esterase,Urine Small (Negative); Mucus,Urine Moderate /hpf; Nitrite,Urine Negative (Negative); Protein,Urine Negative (Negative); RBC,Urine 2 /hpf (0-5); Specific Gravity,Urine 1.016 (1.001-1.035); Squamous Epithelial Cell,Urine 2 /hpf (0-4); Urobilinogen,Urine <2.0 mg/dL (<2.0); WBC,Urine 19 /hpf (0-5)
[2018-04-18] MEDS ORDERED: KETOROLAC 30 MG/ML 1 ML VIAL IVP STA (21:39)
[2018-04-18] MEDS ORDERED: SODIUM CHLORIDE 0.9% 1,000 ML IV ONE (21:39)
[2018-04-18] MEDS ORDERED: ONDANSETRON 4 MG/2 ML VIAL IVP STA (21:39)
[2018-04-18 22:22] LABS: Basophils # (A) 0.1 k/uL (0-0.2); Basophils % (A) 1 %; Eosinophils # (A) 0.3 k/uL (0-0.7); Eosinophils % (A) 3 %; HCT 43.6 % (34.0-46.0); HGB 14.2 gm/dL (11.4-16.0); Lymphocytes # (A) 2.5 k/uL (1.0-4.8); Lymphocytes % (A) 20 %; MCH 27.8 pg (25.0-35.0); MCHC 32.6 g/dL (31.0-37.0); MCV 85.4 fL (80.0-100.0); Mean Platelet Volume 7.2; Monocytes # (A) 0.5 k/uL (0-1.0); Monocytes % (A) 4 %; Neutrophils # (A) 8.7 k/uL (1.3-7.7); Neutrophils % (A) 71 %; Platelet Count 301 k/uL (150-450); RBC 5.11 m/uL (3.80-5.40); RDW 12.5 % (11.5-15.5); WBC 12.2 k/uL (3.8-10.6)
[2018-04-18 22:37] LABS: ALT 22 U/L (9-52); AST 33 U/L (14-36); Albumin 5.1 g/dL (3.5-5.0); Alkaline Phosphatase 35 U/L (38-126); Anion Gap 11 mmol/L; Blood Urea Nitrogen 12 mg/dL (7-17); Calcium 9.7 mg/dL (8.4-10.2); Carbon Dioxide 23 mmol/L (22-30); Chloride 107 mmol/L (98-107); Glucose 77 mg/dL (74-99); Sodium 141 mmol/L (137-145); Total Protein 8.5 g/dL (6.3-8.2)
--- NOTE | 2018-04-18 22:51 | CT ---
EXAMINATION TYPE: CT abdomen pelvis w con DATE OF EXAM: 04/18/2018 COMPARISON: 04/05/2018 HISTORY: LT side abdomen pain radiating into back. Pt had cyst aspiration Wednesday CT DLP: 552.5 mGycm Automated exposure control for dose reduction was used. TECHNIQUE: Helical acquisition of images was performed from the lung bases through the pelvis. CONTRAST: Performed without Oral Contrast and with IV Contrast, patient injected with 100 mL of Isovue 300. FINDINGS: Lung bases are clear. There is no pleural effusion. Liver spleen pancreas gallbladder appear normal. Bile ducts are not dilated. Stomach appears normal. There is no adrenal mass. There are multiple bila teral renal cortical cysts that measure up to 4 cm. There is no hydronephrosis. Ureters are not dilat ed. There is no retroperitoneal adenopathy. There are a few abdominal para-aortic lymph nodes that me asure less than 1 cm. Bladder distends smoothly. There is no free fluid in the pelvis. There is no inguinal hernia. I see n o intestinal wall thickening. There are no dilated loops. There is 2 cm cyst on the left ovary. There is no mesenteric edema or adenopathy. Lumbar spine is intact. Bony pelvis appears intact. There is n o sign of a thickened appendix. IMPRESSION: BILATERAL MULTIPLE RENAL CORTICAL CYSTS. THERE IS A LARGE CYST ON THE ANTERIOR LEFT KIDNEY THAT MEASU RES 8 CM ON THE OLD CT SCAN THAT IS SIGNIFICANTLY SMALLER ON TODAY'S EXAM. There is 2 cm left ovarian cyst slightly smaller than old CT scan. There is clearing of the minimal free fluid in the pelvis co mpared to old exam.
--- NOTE | 2018-04-18 23:58 | ED ---
Abdominal Pain HPI - General Chief Complaint: Abdominal Pain Stated Complaint: Cyst pain/left kidney Time Seen by Provider: 04/18/18 20:43 Source: patient Limitations: no limitations - History of Present Illness Initial Comments: 37-year-old female patient with recent history of fine-needle aspiration of a left renal cyst presents to the emergency department this afternoon for evaluation of left flank pain. Patient states that she was admitted to the hospital 1 week ago and had drainage of the cyst approximately 5 days ago. Patient states she was doing well but then started to have increased pain to the left flank. She states that the pain has worsened significantly over the weekend. She did speak to Dr. Castillo's office, they were unable to get her in so they were recommended she present to the emergency department for further evaluation. Patient states she is having some dysuria this morning, she did take a leftover Levaquin that she had. States that she has increased fluids but continued to have pain so she presented for evaluation. She denies any nausea or vomiting with this. Denies any constipation or diarrhea. She denies fevers or chills. Patient denies any recent rash, shortness breath, chest pain, diarrhea, constipation, numbness, tingling, dizziness, weakness, hematuria,urinary urgency, urinary frequency, headache, visual changes, or any other complaints. - Related Data Home Medications Medication Instructions Recorded Confirmed Phenylephrine HCl/Acetaminophn 1 tab PO Q4H 04/18/18 04/18/18 [Sudafed PE Pressure+Pain Cplt] Previous Rx's Medication Instructions Recorded Levofloxacin [Levaquin] 750 mg PO DAILY #5 tab 04/18/18 Ketorolac [Toradol] 10 mg PO Q6HR #12 tab 04/19/18 Allergies Allergy/AdvReac Type Severity Reaction Status Date / Time gluten Allergy Nausea & Verified 04/18/18 21:19 Vomiting & Diarrhea Latex, Natural Rubber Allergy Unknown Verified 04/18/18 20:42 Review of Systems ROS Statement: Those systems with pertinent positive or pertinent negative responses have been documented in the HPI. ROS Other: All systems not noted in ROS Statement are negative. Past Medical History Past Medical History: Seizure Disorder, Skin Disorder, Thyroid Disorder Additional Past Medical History / Comment(s): DERMAGRAPHISM ibs, chronic abdominal pain-to have US on 04/13/18, past hypothyroid but no longer issue, one seizure as an and was comatose for 5 days, migraines, hypoglycemia. History of Any Multi-Drug Resistant Organisms: None Reported Past Surgical History: Hysterectomy, Uterine Ablation Additional Past Surgical History / Comment(s): D&C x2m hysteroscopy with uterine ablation, needle aspiration of left kidney cyst. Past Anesthesia/Blood Transfusion Reactions: No Reported Reaction Past Psychological History: No Psychological Hx Reported Smoking Status: Never smoker Past Alcohol Use History: None Reported Past Drug Use History: None Reported - Past Family History Mother Family Medical History: Diabetes Mellitus, Hyperlipidemia, Hypertension Additional Family Medical History / Comment(s): Hypomagnesemia. Father Family Medical History: Chest Pain / Angina, Coronary Artery Disease (CAD), Hypertension, Myocardial Infarction ([place]) Additional Family Medical History / Comment(s): Father had his first [place] in his mid 50s. General Exam Limitations: no limitations General appearance: alert, in no apparent distress, other (This is a well- developed, well-nourished adult female patient in no acute distress. Vital signs upon presentation are temperature 98.2F, pulse 83, respirations 16, blood pressure 123/78, pulse ox 99% on room air.) Eye exam: Present: normal appearance, PERRL, EOMI. Absent: scleral icterus, conjunctival injection, periorbital swelling ENT exam: Present: normal exam, normal oropharynx, mucous membranes moist Respiratory exam: Present: normal lung sounds bilaterally. Absent: respiratory distress, wheezes, rales, rhonchi, stridor Cardiovascular Exam: Present: regular rate, normal rhythm, normal heart sounds. Absent: systolic murmur, diastolic murmur, rubs, gallop, clicks GI/Abdominal exam: Present: soft, normal bowel sounds. Absent: distended, tenderness, guarding, rebound, rigid Back exam: Present: normal inspection. Absent: CVA tenderness (R), CVA tenderness (L) Neurological exam: Present: alert, oriented X3, CN II-XII intact Psychiatric exam: Present: normal affect, normal mood Skin exam: Present: warm, dry, intact, normal color. Absent: rash Course Vital Signs 04/18/18 04/19/18 20:39 00:17 Temperature 98.2 F 98.1 F Pulse Rate 83 78 Respiratory 16 18 Rate Blood Pressure 123/78 122/87 O2 Sat by Pulse 99 98 Oximetry Medical Decision Making - Medical Decision Making 37-year-old female patient presented to the emergency department today for evaluation of left flank pain. Patient recently had a cyst on the left kidney drained while inpatient for similar symptoms. Patient is afebrile, vital signs stable. White blood cell count is 12.2, neutrophils 8.7, urinalysis shows 2+ ketones, trace blood, small leukocyte esterase, 19 white blood cells, rare white blood cell clumps, rare bacteria, and moderate mucus. CT of the abdomen and pelvis shows multiple renal cortical cysts with improved size of a large cyst to the left kidney, improved ovarian cyst. No evidence of hydronephrosis, fat stranding, or hydroureter. I did discuss findings and results with the patient. We'll treat for urinary tract infection. She is instructed to follow- up with her urologist as soon as possible. She was given prescription for Toradol. Return parameters were discussed in detail. She verbalizes understanding and agrees with this plan. - Lab Data Result diagrams: 04/18/18 22:04 04/18/18 22:04 Lab Results 04/18/18 04/18/18 04/18/18 Range/Units 21:02 22:04 22:04 WBC 12.2 H (3.8-10.6) k/uL RBC 5.11 (3.80-5.40) m/uL Hgb 14.2 (11.4-16.0) gm/dL Hct 43.6 (34.0-46.0) % MCV 85.4 (80.0-100.0) fL MCH 27.8 (25.0-35.0) pg MCHC 32.6 (31.0-37.0) g/dL RDW 12.5 (11.5-15.5) % Plt Count 301 (150-450) k/uL Neutrophils % 71 % Lymphocytes % 20 % Monocytes % 4 % Eosinophils % 3 % Basophils % 1 % Neutrophils # 8.7 H (1.3-7.7) k/uL Lymphocytes # 2.5 (1.0-4.8) k/uL Monocytes # 0.5 (0-1.0) k/uL Eosinophils # 0.3 (0-0.7) k/uL Basophils # 0.1 (0-0.2) k/uL Sodium 141 (137-145) mmol/L Potassium 5.0 (3.5-5.1) mmol/L Chloride 107 (98-107) mmol/L Carbon Dioxide 23 (22-30) mmol/L Anion Gap 11 mmol/L BUN 12 (7-17) mg/dL Creatinine 0.62 (0.52-1.04) mg/dL Est GFR (CKD-EPI)AfAm >90 (>60 ml/min/1.73 sqM) Est GFR (CKD-EPI)NonAf >90 (>60 ml/min/1.73 sqM) Glucose 77 (74-99) mg/dL Calcium 9.7 (8.4-10.2) mg/dL Total Bilirubin 1.0 (0.2-1.3) mg/dL AST 33 (14-36) U/L ALT 22 (9-52) U/L Alkaline Phosphatase 35 L (38-126) U/L Total Protein 8.5 H (6.3-8.2) g/dL Albumin 5.1 H (3.5-5.0) g/dL Urine Color Yellow Urine Appearance Clear (Clear) Urine pH 5.0 (5.0-8.0) Ur Specific Benedict 1.016 (1.001-1.035) Urine Protein Negative (Negative) Urine Glucose (UA) Negative (Negative) Urine Ketones 2+ H (Negative) Urine Blood Trace H (Negative) Urine Nitrite Negative (Negative) Urine Bilirubin Negative (Negative) Urine Urobilinogen <2.0 (<2.0) mg/dL Ur Leukocyte Esterase Small H (Negative) Urine RBC 2 (0-5) /hpf Urine WBC 19 H (0-5) /hpf Urine WBC Clumps Rare H (None) /hpf Ur Squamous Epith Cells 2 (0-4) /hpf Urine Bacteria Rare H (None) /hpf Urine Mucus Moderate H (None) /hpf - Radiology Data Radiology results: report reviewed, image reviewed CT abdomen and pelvis with contrast was obtained. Report was reviewed in its entirety. Impression by Dr. Kwon shows bilateral multiple renal cortical cysts. There is a large cyst on the anterior left kidney that measures 8 cm and the old computed tomography scan is significantly smaller on today's exam. There is 2 cm left ovarian cyst slightly smaller than old computed tomography scan. There is clearing of the minimal free fluid in the pelvis compared to old exam. Disposition Clinical Impression: Urinary tract infection, Flank pain Disposition: HOME SELF-CARE Condition: Good Instructions: Urinary Tract Infection in Women (ED), Flank Pain (ED) Additional Instructions: Increase fluids. Complete antibiotic prescription in full. Take medications as directed. Follow-up with your primary care physician for recheck in 1-2 days. Follow up with urology as soon as possible. Return immediately for any new, worsening, or concerning symptoms. Prescriptions: Ketorolac [Toradol] 10 mg PO Q6HR #12 tab Levofloxacin [Levaquin] 750 mg PO DAILY #5 tab Is patient prescribed a controlled substance at d/c from ED?: No Referrals: Anika Lemos MD [Primary Care Provider] - 1-2 days Owen Barcenas MD [STAFF PHYSICIAN] - 1-2 days Time of Disposition: 23:58
[2018-04-19 00:19] VITALS: BP 122/87; PULSE 78; RESP 18; TEMP 98.1
== END 2018-04-19 00:16 | disposition home or self-care (01) ==
LOC: EC 20:29
DX: N39.0 Urinary tract infection, site not specified (principal); N28.1 Cyst of kidney, acquired; N83.202 Unspecified ovarian cyst, left side; G89.29 Other chronic pain; Z91.018 Allergy to other foods; Z91.040 Latex allergy status; Z79.891 Long term (current) use of opiate analgesic; Z79.899 Other long term (current) drug therapy; Z90.710 Acquired absence of both cervix and uterus; Z98.890 Other specified postprocedural states; Z53.20 Procedure and treatment not carried out because of patient's decision for unspecified reasons
CPT/HCPCS: 99284; 96374; 96361; 36415; 80053; 85025; 81001; 87086; 74177; J1885; Q9967

== ENCOUNTER → 2018-05-06 | Outpatient (CLI) | payer OTHER ==
--- NOTE | 2018-05-06 15:56 | CT ---
EXAMINATION TYPE: CT abdomen pelvis wo con DATE OF EXAM: 05/06/2018 COMPARISON: 04/18/2018 HISTORY: LEFT FLANK PAIN CT DLP: 265.1 mGycm Examination of the solid and hollow viscera is limited given the lack of contrast. FINDINGS: LUNG BASES: No evidence for nodule. No evidence for infiltrate. LIVER/GB: The gallbladder is unremarkable. No space-occupying hepatic lesion. PANCREAS: No pancreatic mass identified. No inflammatory process seen. SPLEEN: No evidence for splenomegaly. No intrasplenic lesions seen. ADRENALS: No adrenal nodules identified. No evidence for thickening. KIDNEYS: Multiple bilateral cysts noted. No hydronephrosis or nephrolithiasis. BOWEL: Appendix has a normal appearance. No evidence of bowel obstruction. No inflammatory process. Lymph nodes: No evidence for adenopathy greater than 1 cm. Abdominal aorta: Atheromatous changes seen. No evidence for aneurysm. Genital organs: No significant abnormality. Other: No significant abnormality. IMPRESSION: 1. Renal cystic changes. No evidence for hydronephrosis or nephrolithiasis.
== END | disposition home or self-care (01) ==
LOC: RADCTMAIN 14:45
PROVIDERS: ATTEND Urology
DX: N28.1 Cyst of kidney, acquired (principal); R31.9 Hematuria, unspecified
CPT/HCPCS: 74176

== ENCOUNTER → 2018-06-14 | Outpatient (CLI) | payer OTHER ==
--- NOTE | 2018-06-15 08:19 | USB ---
Reason for exam: clinical finding. History: Family history of breast cancer in paternal aunt at age 28. Taking progesterone beginning at age 37. Physical Findings: Nurse Summary: right breast palpable 11 o'clock 2.5 x 1cm, tender, movable, bilateral nodularity, all soft, movable (nurse ts). US Breast BILAT Right complete breast ultrasound includes all four quadrants, the retroareolar region and axilla. Finding demonstrates a 0.4 x 0.4 x 0.3cm oval, cystic lesion at 12 o'clock, a 0.7 x 0.6 x 0.3cm oval, complex, cystic cluster at 1 o'clock, a 0.3 x 0.2 x 0.2cm oval, complex, cystic lesion at 3 o'clock, a 0.5 x 0.4 x 0.3cm oval, complex, cystic lesion at 4 o'clock and a 2.4 x 1.8 x 1.0cm oval, cystic lesion at 10 o'clock. Left complete breast ultrasound includes all four quadrants, the retroareolar region and axilla. Finding demonstrates a 0.3 x 0.9 x 0.2cm oval, complex, cystic lesion at 2 o'clock and a 0.3 x 0.4 x 0.2cm oval, mixed lesion at 5 o'clock. All of these changes suggest fibrocystic changes. No suspicious lesion seen. These results were verbally communicated with the patient and result sheet given to the patient on 06/14/18. ASSESSMENT: Benign, BI-RAD 2 RECOMMENDATION: Routine screening mammogram of both breasts at age 39. (unless clinical indication to start sooner) Manage on a clinical basis with regard to bilateral milky nipple discharge.
== END | disposition home or self-care (01) ==
LOC: RADUSWWP 15:30
PROVIDERS: ATTEND Internal Medicine
DX: N64.3 Galactorrhea not associated with childbirth (principal)

== ENCOUNTER → 2018-06-22 | Outpatient (CLI) | payer OTHER ==
[2018-06-22 11:57] LABS: Basophils # (A) 0.1 k/uL (0-0.2); Basophils % (A) 2 %; Eosinophils # (A) 0.3 k/uL (0-0.7); Eosinophils % (A) 5 %; HCT 44.5 % (34.0-46.0); HGB 14.9 gm/dL (11.4-16.0); Lymphocytes # (A) 1.6 k/uL (1.0-4.8); Lymphocytes % (A) 28 %; MCH 29.8 pg (25.0-35.0); MCHC 33.5 g/dL (31.0-37.0); Mean Platelet Volume 7.1; Monocytes # (A) 0.3 k/uL (0-1.0); Monocytes % (A) 6 %; Neutrophils # (A) 3.3 k/uL (1.3-7.7); Neutrophils % (A) 58 %; Platelet Count 270 k/uL (150-450); RDW 13.2 % (11.5-15.5); WBC 5.6 k/uL (3.8-10.6)
[2018-06-22 12:04] LABS: Anion Gap 8 mmol/L; Blood Urea Nitrogen 14 mg/dL (7-17); Calcium 9.5 mg/dL (8.4-10.2); Carbon Dioxide 28 mmol/L (22-30); Chloride 106 mmol/L (98-107); Glucose 69 mg/dL (74-99); Potassium 4.1 mmol/L (3.5-5.1); Sodium 142 mmol/L (137-145)
== END ==
LOC: LABPAT 11:11
PROVIDERS: ATTEND Urology
DX: Z01.812 Encounter for preprocedural laboratory examination (principal); N28.1 Cyst of kidney, acquired; R10.9 Unspecified abdominal pain; R10.12 Left upper quadrant pain
CPT/HCPCS: 36415; 80048; 85025; 86850; 86900; 86901

== ENCOUNTER → 2018-07-08 | Outpatient (CLI) | payer OTHER ==
[2018-07-08 14:24] VITALS: BP 120/77; PULSE 83; RESP 16; TEMP 98.2; BMI 22.3
--- NOTE | 2018-07-08 15:17 | P.GSHP ---
History of Present Illness H&P Date: 07/08/18 Chief Complaint: milky discharge bilateral Subha is a 37-year-old white female who presents with a complaint of bilateral nipple discharge. The discharge started approximately 9months ago and is like a thin milky substance. She also complains of pain in her breast if the discharge is expressed. She states that approximately 9 months ago she noted that the nipples were itching and when she would scratch the nipple area she had a discharge on her fingers. The discharge was persistent. She was seen by her primary care doctor who expressed some fluid and sent it for culture but cultures were negative. There were only positive for epithelial staff which was felt to be a skin contaminant. The patient states the discharge has decreased at this time. It only is present if she manipulates the breast. The problem is the patient states her breasts feel quite well and if she doesn't express the fluid the breast become quite painful. The patient has taken DHEA cream which decreased the breast pain and decreased the discharge. The patient had a hysterectomy in 2011, her ovaries were not removed. The patient does drink 3 frape/week. She does not take any other caffeinated beverages. She does not smoke. She does not eat chocolate. The patient has multiple cysts. These included cyst on her scalp, her left kidney, her right kidney, her ovary, and her breast. The patient had a bilateral mammogram performed 12/15/2017 and this was felt to be benign BIRADS 1, she additionally had bilateral breast ultrasound performed 06/14/2018 and this was felt to be findings suggestive of fibrocystic disease no suspicious lesion seen The patient's prolactin level was drawn in January 2018 and was normal at 8 The patient had a TSH level drawn in April 2018 which was 2.6 which was also normal Patient had an MRI of the brain done in April 2018: This showed superficial cysts but no intracranial lesions as per the patient Family History: 1. maternal grandmother: colon cancer 2. paternal grandfather: lung cancer 3. maternal uncle: ? lung cancer 4. paternal aunt: ovarian and cervical cancer at 33 Inguinal history: Menarche: 10 Pregnancies: 3, 3 live births, patient chose not to breast-feed, however at the time of approximately 4 months to begin which continued throughout last was approximately 9 years ago, first live at 17 periods: Hysterectomy done for bleeding at the age of 30, left ovaries BCP: DEPO for a short time hormones: DHEA cream 1 year Past Surgical History: 1. kidney cyst removed 2. hysterectomy 3. 2 D&C Past Medical History: 1. Dermographism/goes with autoimmune, better since cyst on kidneys removed 2. multiple cyst 3. back pain 4. migrain Social History: smoke: none alcohol: none drugs: none - Constitutional Constitutional: Denies chills, Denies fever - EENT Comment: cluster migraines Eyes: Ears: Ears, nose, mouth and throat: Reports headache, Denies sore throat - Breasts Breasts: - Cardiovascular Cardiovascular: Denies chest pain, Denies shortness of breath - Respiratory Respiratory: Denies cough, Denies 7 - Gastrointestinal Comment: IBS Gastrointestinal: Denies abdominal pain, Denies diarrhea, Denies nausea, Denies vomiting - Genitourinary (Female) Comment: kidney cyst removed on the left side - Menstruation Menstruation: Reports post hysterectomy - Musculoskeletal Comment: C-spine Musculoskeletal: Denies myalgias - Integumentary Comment: dermagraphia Integumentary: Reports pruritus, Reports rash - Neurological Neurological: Denies numbness, Denies weakness - Psychiatric Psychiatric: Denies anxiety, Denies depression - Endocrine Comment: was hypothyroid off medication for 2 1/2 years - Hematologic/Lymphatic Comment: none - Allergic/Immunologic Comment: latex, gluten intolerance Allergic/Immunologic: Reports seasonal allergies Past Medical History Past Medical History: Seizure Disorder, Skin Disorder, Thyroid Disorder Additional Past Medical History / Comment(s): DERMAGRAPHISM ., IBS., past hypothyroid but no longer issue, one seizure as an infant and was comatose for 5 days, migraines, hypoglycemia. , CYST ON LEFT KIDNEY, PAIN LEFT ABD AND LEFT FLANK. History of Any Multi-Drug Resistant Organisms: None Reported Past Surgical History: Hysterectomy, Uterine Ablation Additional Past Surgical History / Comment(s): D&C x2., hysteroscopy with uterine ablation., needle aspiration of left kidney cyst. 06/29/2018 robot assisted removal of left renal cyst. Past Anesthesia/Blood Transfusion Reactions: No Reported Reaction Past Psychological History: No Psychological Hx Reported Additional Psychological History / Comment(s): . Smoking Status: Never smoker Past Alcohol Use History: None Reported Past Drug Use History: None Reported - Past Family History Mother Family Medical History: Diabetes Mellitus, Hyperlipidemia, Hypertension Additional Family Medical History / Comment(s): Hypomagnesemia. Father Family Medical History: Chest Pain / Angina, Coronary Artery Disease (CAD), Diabetes Mellitus, Hypertension, Myocardial Infarction ([place]) Additional Family Medical History / Comment(s): Father had his first [place] in his mid 50s. Medications and Allergies Home Medications Medication Instructions Recorded Confirmed Type Ketorolac [Toradol] 10 mg PO Q6HR #12 tab 04/19/18 06/30/18 Rx Albaplex Vitamin Supplement 1 dose PO DAILY 06/24/18 06/30/18 History Gastrex- Supplement 1 tab PO DAILY 06/24/18 06/30/18 History Ibuprofen [Motrin Ib] 800 mg PO TID PRN 06/24/18 06/30/18 History L.acidoph,Paracasei, B.lactis 1 cap PO DAILY 06/24/18 06/30/18 History [Probiotic] Livaplex Vitamin & Mineral Sup 1 dose PO DAILY 06/24/18 06/30/18 History Super Eff -Supplement 1 tab PO DAILY 06/24/18 06/30/18 History Ketorolac [Toradol] 10 mg PO Q6HR #20 tab 07/01/18 Rx Ondansetron [Zofran] 4 mg PO Q8HR PRN #14 tab 07/01/18 Rx Allergies Allergy/AdvReac Type Severity Reaction Status Date / Time Latex, Natural Rubber Allergy Intermediate Swelling Verified 07/08/18 14:25 gluten Allergy Nausea & Verified 07/08/18 14:25 Vomiting & Diarrhea Surgical - Exam Vital Signs Temp Pulse Resp BP Pulse Ox 98.2 F 83 16 120/77 98 07/08/18 14:11 07/08/18 14:11 07/08/18 14:11 07/08/18 14:11 07/08/18 14:11 BMI 22.3 - General well developed, well nourished, no distress - Eyes normal ocular movement - ENT no hearing loss, no congestion - Neck no masses, trachea midline - Respiratory normal respiratory effort, clear to auscultation - Cardiovascular Rhythm: regular Heart Sounds: - Abdomen Incisions from recent surgery clean and dry Abdomen: soft - Integumentary rash over torso, after surgery - Neurologic no disoriented, no combative - Musculoskeletal normal gait, normal posture - Psychiatric oriented to time, oriented to person, oriented to place, speech is normal, memory intact Breast examination: Right breast: Dense fibrocystic breast changes no discrete dominant mass or nodule No definite nipple discharge with manipulation on today's exam Right axilla: No adenopathy of concern Left breast: Dense fibrocystic breast tissue and multiple positional exam no discrete dominant masses or nodules of concern No discrete nipple discharge with manipulation on today's exam Left axilla: No adenopathy of concern Results Mammogram and ultrasound reports reviewed Assessment and Plan Assessment: Impression: 1. Galactorrhea/improving 2. normal prolactin January 2018 3. recent kidney cyst 4. probable autoimmune disease 5. normal TSH level April 2018 6. fibrocystic disease 7. back pain 8. migraine 9. dermographia 10. No evidence of any breast cancer 11. Family history of cancer Plan: 1. repeat prolactin 2. reviewed MRI of the brain 04-06-18, no evidence of pituitary tumor 3. consider appt with bottle caser 4. patient will stop caffiene 5. a trial of primrose oil 6. follow up in 4 weeks CC: Dr. Lemos
== END | disposition home or self-care (01) ==
LOC: WWCWWP 13:54
PROVIDERS: ATTEND Surgery
DX: N64.3 Galactorrhea not associated with childbirth (principal)
CPT/HCPCS: 36415; 84146

== ENCOUNTER 2018-07-14 20:44 | Emergency (ER) | payer OTHER ==
[2018-07-14 20:52] VITALS: RESP 16; TEMP 98.3
[2018-07-14] MEDS ORDERED: ONDANSETRON 4 MG/2 ML VIAL IVP STA (21:33)
[2018-07-14] MEDS ORDERED: KETOROLAC 30 MG/ML 1 ML VIAL IVP STA (21:33)
[2018-07-14] MEDS ORDERED: SODIUM CHLORIDE 0.9% 1,000 ML IV STA (21:33)
[2018-07-14 21:50] LABS: Basophils # (A) 0.1 k/uL (0-0.2); Basophils % (A) 1 %; Eosinophils # (A) 0.4 k/uL (0-0.7); Eosinophils % (A) 4 %; HCT 37.6 % (34.0-46.0); HGB 12.1 gm/dL (11.4-16.0); Lymphocytes # (A) 1.9 k/uL (1.0-4.8); Lymphocytes % (A) 22 %; MCH 27.8 pg (25.0-35.0); MCHC 32.2 g/dL (31.0-37.0); MCV 86.5 fL (80.0-100.0); Mean Platelet Volume 6.5; Monocytes # (A) 0.5 k/uL (0-1.0); Monocytes % (A) 6 %; Neutrophils % (A) 67 %; Platelet Count 470 k/uL (150-450); RBC 4.35 m/uL (3.80-5.40); RDW 13.4 % (11.5-15.5)
[2018-07-14 21:58] LABS: ALT 28 U/L (9-52); AST 24 U/L (14-36); Albumin 4.4 g/dL (3.5-5.0); Alkaline Phosphatase 65 U/L (38-126); Anion Gap 8 mmol/L; Blood Urea Nitrogen 17 mg/dL (7-17); Calcium 9.5 mg/dL (8.4-10.2); Carbon Dioxide 28 mmol/L (22-30); Chloride 104 mmol/L (98-107); Glucose 88 mg/dL (74-99); Potassium 4.3 mmol/L (3.5-5.1); Sodium 140 mmol/L (137-145); Total Bilirubin 0.7 mg/dL (0.2-1.3); Total Protein 7.7 g/dL (6.3-8.2)
[2018-07-14 22:00] LABS: Appearance,Urine Cloudy (Clear); Bacteria,Urine Rare /hpf; Bilirubin,Urine Negative (Negative); Blood,Urine Trace (Negative); Color,Urine Yellow; Glucose,Urine (UA) Negative (Negative); Ketones,Urine Trace (Negative); Leukocyte Esterase,Urine Negative (Negative); Mucus,Urine Many /hpf; Nitrite,Urine Negative (Negative); PH, Urine 5.5 (5.0-8.0); Protein,Urine Trace (Negative); RBC,Urine 1 /hpf (0-5); Specific Gravity,Urine 1.022 (1.001-1.035); Squamous Epithelial Cell,Urine 3 /hpf (0-4); Urobilinogen,Urine <2.0 mg/dL (<2.0); WBC,Urine 8 /hpf (0-5)
--- NOTE | 2018-07-14 22:20 | ED ---
Abdominal Pain HPI - General Chief Complaint: Abdominal Pain Stated Complaint: cyst removed off kidney 2wks, nausea & abd pain Time Seen by Provider: 07/14/18 21:09 Source: patient Mode of arrival: ambulatory Limitations: no limitations - History of Present Illness Initial Comments: Subha is a 37-year-old female who presents to the emergency department today for evaluation of abdominal pain. Patient reports that she had a renal cyst removed laparoscopically on July 02, her hospital stay was prolonged by uncontrolled pain and constipation at that time. Patient was discharged home 3 days postoperatively. She reports that she was discharged home with Toradol for pain management due to concern of constipation caused by narcotics. Patient reports her pain has been moderate since the surgery however it doesn't seem to be getting better, she feels like there is a heaviness around her kidney and she cannot get comfortable. She reports that she doesn't feel comfortable laying on either side and just lay flat on her back. She reports she has some discomfort with urinating and experiences bladder spasms. Patient reports she's been trying to stay hydrated drinking 6 cups of water daily but still has urinary discomfort. Patient denies fevers or chills. She does report nearly persistent nausea which she associates with the pain. She has been taking Zofran for this which does help somewhat. - Related Data Home Medications Medication Instructions Recorded Confirmed Albaplex Vitamin Supplement 1 dose PO DAILY 06/24/18 07/14/18 Gastrex- Supplement 1 tab PO DAILY 06/24/18 07/14/18 Ibuprofen [Motrin Ib] 800 mg PO TID PRN 06/24/18 07/14/18 L.acidoph,Paracasei, B.lactis 1 cap PO DAILY 06/24/18 07/14/18 [Probiotic] Livaplex Vitamin & Mineral Sup 1 dose PO DAILY 06/24/18 07/14/18 Super Eff -Supplement 1 tab PO DAILY 06/24/18 07/14/18 Previous Rx's Medication Instructions Recorded Ketorolac [Toradol] 10 mg PO Q6HR #20 tab 07/01/18 Ondansetron [Zofran] 4 mg PO Q8HR PRN #14 tab 07/01/18 Ketorolac [Toradol] 10 mg PO Q6HR #20 tab 07/14/18 Allergies Allergy/AdvReac Type Severity Reaction Status Date / Time Latex, Natural Rubber Allergy Intermediate Swelling Verified 07/14/18 21:02 gluten Allergy Nausea & Verified 07/14/18 21:02 Vomiting & Diarrhea Review of Systems ROS Statement: Those systems with pertinent positive or pertinent negative responses have been documented in the HPI. ROS Other: All systems not noted in ROS Statement are negative. Past Medical History Past Medical History: Seizure Disorder, Skin Disorder, Thyroid Disorder Additional Past Medical History / Comment(s): DERMAGRAPHISM ., IBS., past hypothyroid but no longer issue, one seizure as an infant and was comatose for 5 days, migraines, hypoglycemia. , CYST ON LEFT KIDNEY, PAIN LEFT ABD AND LEFT FLANK. History of Any Multi-Drug Resistant Organisms: None Reported Past Surgical History: Hysterectomy, Uterine Ablation Additional Past Surgical History / Comment(s): D&C x2., hysteroscopy with uterine ablation., needle aspiration of left kidney cyst. 06/29/2018 robot assisted removal of left renal cyst. Past Anesthesia/Blood Transfusion Reactions: No Reported Reaction Past Psychological History: No Psychological Hx Reported Smoking Status: Never smoker Past Alcohol Use History: None Reported Past Drug Use History: None Reported - Past Family History Mother Family Medical History: Diabetes Mellitus, Hyperlipidemia, Hypertension Additional Family Medical History / Comment(s): Hypomagnesemia. Father Family Medical History: Chest Pain / Angina, Coronary Artery Disease (CAD), Diabetes Mellitus, Hypertension, Myocardial Infarction (IN) Additional Family Medical History / Comment(s): Father had his first IN in his mid 50s. General Exam - General Exam Comments Initial Comments: Physical Exam GENERAL: Patient is well-developed and well-nourished. Patient is nontoxic and well- hydrated and is in no distress. HENT: Normocephalic, Atraumatic. EYES: PERRL, EOMI PULMONARY: Unlabored respirations. No audible rales rhonchi or wheezing was noted. CARDIOVASCULAR: There is a regular rate and rhythm without any murmurs gallops or rubs. ABDOMEN: Soft and nontender with normal bowel sounds. Left flank pain with palpation SKIN: Well-healed laparoscopic surgical incisions on left anterior abdomen and it will umbilicus : Deferred NEUROLOGIC: Patient is alert and oriented x3. Moving all extremities spontaneously MUSCULOSKELETAL: Normal extremities with adequate strength and full range of motion. No lower extremity swelling or edema. No calf tenderness. PSYCHIATRIC: Normal psychiatric evaluation. Limitations: no limitations Limitations: no limitations Course Vital Signs 07/14/18 07/14/18 20:49 22:25 Temperature 98.3 F Pulse Rate 74 77 Respiratory 16 16 Rate Blood Pressure 110/75 115/86 O2 Sat by Pulse 100 100 Oximetry Medical Decision Making - Medical Decision Making Patient was seen and evaluated history is obtained from the patient and review of medical record Labs and imaging were ordered Patient declined any IV narcotic pain medication Labs are unremarkable hemoglobin stable at 12.1, hemoglobin was 14 preoperatively CBC BMP otherwise unremarkable there is no leukocytosis Computed tomography scan reveals a large fluid collection surrounding the left kidney this is likely blood. These results were discussed with Dr Castillo who recommends outpatient follow-up, he states that he will discuss possible drain placement with the patient of her discomfort is intolerable. Decision was made to avoid narcotic pain medications due to patient's history of constipation. This results were discussed with the patient is agreeable with the plan for discharge home, continue Toradol, continue Zofran for nausea, increase by mouth intake of fluids or hydration and follow up outpatient with urology. Return parameters were discussed all questions pertaining to care were answered to the best of my ability the patient was discharged home in stable condition. - Lab Data Result diagrams: 07/14/18 21:35 07/14/18 21:35 Lab Results 07/14/18 07/14/18 07/14/18 Range/Units 21:17 21:35 21:35 WBC 9.0 (3.8-10.6) k/uL RBC 4.35 (3.80-5.40) m/uL Hgb 12.1 (11.4-16.0) gm/dL Hct 37.6 (34.0-46.0) % MCV 86.5 (80.0-100.0) fL MCH 27.8 (25.0-35.0) pg MCHC 32.2 (31.0-37.0) g/dL RDW 13.4 (11.5-15.5) % Plt Count 470 H (150-450) k/uL Neutrophils % 67 % Lymphocytes % 22 % Monocytes % 6 % Eosinophils % 4 % Basophils % 1 % Neutrophils # 6.0 (1.3-7.7) k/uL Lymphocytes # 1.9 (1.0-4.8) k/uL Monocytes # 0.5 (0-1.0) k/uL Eosinophils # 0.4 (0-0.7) k/uL Basophils # 0.1 (0-0.2) k/uL Sodium 140 (137-145) mmol/L Potassium 4.3 (3.5-5.1) mmol/L Chloride 104 (98-107) mmol/L Carbon Dioxide 28 (22-30) mmol/L Anion Gap 8 mmol/L BUN 17 (7-17) mg/dL Creatinine 0.58 (0.52-1.04) mg/dL Est GFR (CKD-EPI)AfAm >90 (>60 ml/min/1.73 sqM) Est GFR (CKD-EPI)NonAf >90 (>60 ml/min/1.73 sqM) Glucose 88 (74-99) mg/dL Calcium 9.5 (8.4-10.2) mg/dL Total Bilirubin 0.7 (0.2-1.3) mg/dL AST 24 (14-36) U/L ALT 28 (9-52) U/L Alkaline Phosphatase 65 (38-126) U/L Total Protein 7.7 (6.3-8.2) g/dL Albumin 4.4 (3.5-5.0) g/dL Urine Color Yellow Urine Appearance Cloudy H (Clear) Urine pH 5.5 (5.0-8.0) Ur Specific [place] 1.022 (1.001-1.035) Urine Protein Trace H (Negative) Urine Glucose (UA) Negative (Negative) Urine Ketones Trace H (Negative) Urine Blood Trace H (Negative) Urine Nitrite Negative (Negative) Urine Bilirubin Negative (Negative) Urine Urobilinogen <2.0 (<2.0) mg/dL Ur Leukocyte Esterase Negative (Negative) Urine RBC 1 (0-5) /hpf Urine WBC 8 H (0-5) /hpf Ur Squamous Epith Cells 3 (0-4) /hpf Urine Bacteria Rare H (None) /hpf Urine Mucus Many H (None) /hpf Disposition Clinical Impression: Postoperative abdominal pain Disposition: HOME SELF-CARE Instructions (If sedation given, give patient instructions): Abdominal Pain (ED) Additional Instructions: Her CT today reveals a fluid collection around the left kidney, this is likely fluid or blood it's unlikely to be an infection. At this time we'll plan to watch it and observe your symptoms. Call tomorrow for follow up out patient for discussion of further management including possibility of a drain placement. Prescriptions: Ketorolac [Toradol] 10 mg PO Q6HR #20 tab Is patient prescribed a controlled substance at d/c from ED?: No Referrals: Anika Lemos MD [Primary Care Provider] - 1-2 days
--- NOTE | 2018-07-14 22:48 | CT ---
EXAM: CT Abdomen and Pelvis With Intravenous Contrast CLINICAL HISTORY: L flank 12 days s/p renal cyst removal TECHNIQUE: Axial computed tomography images of the abdomen and pelvis with intravenous contrast. CTDI is 12.3 mGy and DLP is 564.6 mGy-cm. This CT exam was performed using one or more of the following dose reduction techniques: automated exposure control, adjustment of the mA and/or kV according to patient size, and/or use of iterative reconstruction technique. COMPARISON: 05/06/18 FINDINGS: Lung bases are clear. There is significant free air under the diaphragm and scattered throughout the abdomen. This may represent sequela of prior surgical intervention. Clinical correlation is required. 6.7 cm AP by 7.4 cm transverse by 9.3 cm craniocaudal left perinephric collection appears to represent a hemorrhage into a previously identified left renal cyst with extension of hemorrhage into the pararenal space, bounded anteriorly by the anterior renal fascia. Small amount of gas is noted anteriorly in this collection. While this could represent sequela of intervention the possibility of abscess is not excluded. There is increased density within this cyst this may represent blood products clinical correlation is required. Paired small collection the paracolic gutter on the left measures 1.8 cm by approximately 8 mm this appears to be loculated left paracolic gutter Multiple bilateral renal cysts noted bilaterally. The liver and spleen are unremarkable. The gallbladder is within normal limits. No evidence for stones. No intrahepatic or extrahepatic ductal dilatation. The pancreas is normal in appearance. The appendix is unremarkable. No inflammatory changes are noted along the GI tract.. There is some free fluid noted in the pelvis. IMPRESSION: Significant amount of free air under the diaphragm and scattered throughout the abdomen. This may represent the sequela of prior surgical intervention, clinical correlation is required regarding the type of procedure. Large left pararenal collection which appears represent a hematoma into a previously identified cyst that extends into the pararenal space bounded anteriorly by the anterior renal fascia. Possible abscess is not excluded given presence of air in the collection. Small loculated collection in the left paracolic gutter adjacent to the pararenal collection measuring approximately 18 x 8 mm
[2018-07-14 23:44] VITALS: BP 121/81; PULSE 72
== END 2018-07-14 23:45 | disposition home or self-care (01) ==
LOC: EC 20:44
DX: G89.18 Other acute postprocedural pain (principal); R10.9 Unspecified abdominal pain; R11.0 Nausea; N32.89 Other specified disorders of bladder; Z91.018 Allergy to other foods; Z91.040 Latex allergy status; Z79.899 Other long term (current) drug therapy
CPT/HCPCS: 36415; 80053; 85025; 81001; 74177; 99284; 96374; 96375; 96361 ×2; J2405; J1885; Q9967

== ENCOUNTER → 2018-07-19 | Outpatient (CLI) | payer OTHER ==
[2018-07-19 12:57] LABS: HCT 38.3 % (34.0-46.0); HGB 12.2 gm/dL (11.4-16.0); MCH 28.2 pg (25.0-35.0); MCHC 31.9 g/dL (31.0-37.0); MCV 88.5 fL (80.0-100.0); Mean Platelet Volume 6.3; Platelet Count 377 k/uL (150-450); RBC 4.33 m/uL (3.80-5.40); RDW 13.3 % (11.5-15.5); WBC 6.1 k/uL (3.8-10.6)
== END | disposition home or self-care (01) ==
LOC: LABWHC1 12:08
PROVIDERS: ATTEND Urology
DX: D62 Acute posthemorrhagic anemia (principal)
CPT/HCPCS: 36415; 85027

== ENCOUNTER → 2018-11-04 | Outpatient (CLI) | payer OTHER ==
--- NOTE | 2018-11-07 10:48 | CT ---
EXAMINATION TYPE: CT abdomen wo/w con DATE OF EXAM: 11/04/2018 COMPARISON: 07/14/2018, 05/06/2018, 04/18/2018 HISTORY: Left side flank pain and abdominal pain after left renal cyst removal. CT DLP: 845 mGycm Automated exposure control for dose reduction was used. TECHNIQUE: Helical acquisition of images was performed from the lung bases through the top of iliac crest to include entire abdomen. CONTRAST: Performed with Oral Contrast and without and with IV Contrast, patient injected with 100ml mL of Isov ue 300. FINDINGS: LUNG BASES: No significant abnormality is appreciated. LIVER/GB: No significant abnormality is appreciated. PANCREAS: No significant abnormality is seen. SPLEEN: No significant abnormality is seen. Small accessory spleen incidentally noted ADRENALS: No significant abnormality is seen. KIDNEYS: There is intermediate hyperdense 4.8 cm lesion involving the left kidney which does not meet the criteria of simple cyst. Measures 44 Hounsfield units. Appears to measure 44 Hounsfield units an d both noncontrast and postcontrast imaging suggesting no significant enhancement. Complicated cystic neoplasm with septation suggestive. Appears reduced in size from prior exam where it measured 6.3 cm . There are additional multiple other cysts within the left bilateral kidney. The largest measures 3.9 cm and measures 3 Hounsfield units suggestive of simple cyst. Some of the cysts are too small to mikala acterize.. BOWEL: No significant abnormality is seen. LYMPH NODES: No significant abnormality is seen. OSSEOUS STRUCTURES: No significant abnormality is seen. OTHER: Aorta of normal caliber. Small periumbilical fat-containing hernia noted. IMPRESSION: 1. Interval mild reduction in size of the complicated cyst within the left kidney likely representing a hemorrhagic cyst. Follow to resolution to exclude underlying occult hemorrhagic neoplasm given the limited reduction in size relative to the prior exam.
== END | disposition home or self-care (01) ==
LOC: RADCTMAIN 15:26
PROVIDERS: ATTEND Urology
DX: N28.1 Cyst of kidney, acquired (principal); Z91.040 Latex allergy status; Z91.018 Allergy to other foods
CPT/HCPCS: 74170; Q9967

== ENCOUNTER → 2020-07-12 | Outpatient (CLI) | payer OTHER ==
--- NOTE | 2020-07-12 19:16 | CT ---
EXAMINATION TYPE: CT sinus wo con DATE OF EXAM: 07/12/2020 COMPARISON: None HISTORY: chronic sinus congestion CT DLP: 403.7 mGycm. Automated Exposure Control for Dose Reduction was Utilized. TECHNIQUE: CT scan of the sinuses is performed without contrast, axial images are obtained, coronal r eformatted images are also reviewed. FINDINGS: There is a mucous retention cyst of moderate size involving the antrum of the right maxilla ry sinus. Nasal septal deviation seen and there is mild mucosal lesion involving the right maxillary sinus. Remaining paranasal sinuses demonstrate no evidence of significant mucosal.. The ostiomeatal complex is patent bilaterally on the coronal images. Visualized portion of mastoid air cells show no abnormal opacification. The globes are intact bilate rally. Visualized nasopharynx symmetric. Visualized portions of the globes and intracranial structur es symmetric. IMPRESSION: 1. Moderate-sized mucous retention cyst or polyp right maxillary sinus with mild mucosal thickening. Remaining sinuses are clear and the ostiomeatal complex patent bilaterally.
== END | disposition home or self-care (01) ==
LOC: RADCTMAIN 18:54
PROVIDERS: ATTEND Family Medicine
DX: J34.89 Other specified disorders of nose and nasal sinuses (principal)
CPT/HCPCS: 70486